=== PATIENT | female | born 2005 | race Two or more races ===

== ENCOUNTER → 2025-02-24 | Outpatient (CLI) | payer MEDICAID, SELFPAY ==
--- NOTE | 2025-02-24 13:49 | EKG_ITS ---
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
== END | disposition home or self-care (01) ==
LOC: SEKG 13:36
PROVIDERS: PCP Nurse Practitioner Family; Referring Provider Nurse Practitioner Family; Visit Provider Nurse Practitioner Family
DX: R07.89 Other chest pain (principal)
CPT/HCPCS: 93005

== ENCOUNTER 2025-02-28 21:06 | Emergency (ER) | payer MEDICAID, SELFPAY ==
[2025-02-28 21:07] VITALS: BMI 38.2
[2025-02-28 22:31] VITALS: BP 152/92; PULSE 104; RESP 18; TEMP 37.2; O2SAT 98
--- NOTE | 2025-02-28 23:15 | XR_ITS ---
Examination: Abdomen sonogram, Limited Date and time of exam: March 01, 2025, 0033 hours INDICATIONS: Right upper abdominal pain beginning 6 months ago Technique: Real-time lutz scale transabdominal sonographic images of the upper abdomen obtained. Findings: Multiple gallstones Gallbladder wall 0.2 cm Common bile duct 0.2 cm Pancreatic head 2.0 cm Liver 17.2 cm fatty infiltration Normal hepatopedal portal venous flow. Patent IVC IMPRESSION: Cholelithiasis
[2025-03-01 00:33] LABS: Collection Type, Urine Clean Catch
[2025-03-01 00:51] LABS: Bilirubin,Urine Negative (Negative); Blood,Urine Negative (Negative); Clarity,Urine Clear (Clear/Hazy); Color,Urine Lt-Yellow (Lt Yel-Yel); Culture Indicated,Urine Not Indicated; Glucose, Urine Negative (Negative); Ketones,Urine Negative (Negative); Leukocyte Esterase,Urine Negative (Negative); Nitrite,Urine Negative (Negative); Protein,Urine Negative (Neg - Trace); RBC,Urine 1 /hpf (0-3); Specific Gravity,Urine 1.012 (1.001-1.035); Squamous Epithelial Cell,Urine 2 /hpf (0-5); Urobilinogen,Urine Negative mg/dL (0.0-1.0); WBC,Urine 1 /hpf (0-5)
[2025-03-01 01:15] VITALS: BP 131/85; PULSE 98; RESP 18; TEMP 36.6; O2SAT 99
--- NOTE | 2025-03-01 01:51 | PRELIM_ITS ---
Right upper quadrant abdominal ultrasound with Doppler and wave Doppler spectral analysis. March 01, 2025 0033 hours Clinical history: Right upper quadrant pain 6 months Technique: Grayscale and color flow images of the right upper quadrant are provided. Hepatic and portal veins were also imaged with color flow images. Comparison: None available at the time of this report. Findings: The liver is enlarged and demonstrates increased echogenicity. No intrahepatic biliary ductal dilatation. Gallstones. No wall thickening or pericholecystic fluid is demonstrated. Sonographic Fontaine sign is negative as per the technologist's note. The common bile duct is normal in caliber at 1.8 mm. The pancreas is unremarkable to the extent visualized. The imaged portions of the right kidney are within normal limits. The portal vein is patent with hepatopetal flow and normal wave Doppler spectral analysis. Impression: Hepatomegaly associated with liver steatosis, suspicious for steatohepatitis. Gallstones without evidence of acute cholecystitis. Report Electronically Signed By: Stephen Muhammad 03/01/2025 1:50:33 AM [EST]
--- NOTE | 2025-03-01 04:38 | EDNOTE_ITS ---
ED Abdominal Pain RME/HPI General Chief Complaint: Abdominal Pain Stated complaint: UR Abdominal pain 8/10 x 4 days Time seen by provider: 02/28/25 23:15 Arrival date/time: 02/28/25 21:06 19F with no significant PMH presents to ED with 6 months of intermittent RUQ ab pain. Patient denies N/V and fevers/chills. Limitations: no limitations Related Data Allergies Allergy/AdvReac Type Severity Reaction Status Date / Time No Known Allergies Allergy Verified 08/27/24 21:04 Review of Systems Review of Systems Systems Reviewed: All systems reviewed, normal except as documented Constitutional Constitutional: Reports system reviewed and no additional complaints, except as documented, Denies fever(s) and Denies headache(s) ENT Ears, Nose, Mouth, and Throat: Denies disequilibrium and Denies headache(s) Cardiovascular Cardiovascular: Reports system reviewed and no additional complaints, except as documented, Denies chest pain and Denies dyspnea Respiratory Respiratory: Reports system reviewed and no additional complaints, except as documented, Denies cough and Denies dyspnea Gastrointestinal Gastrointestinal: Reports system reviewed and no additional complaints, except as documented, Reports as per HPI, Reports abdominal pain, Denies nausea and Denies vomiting Neurologic Neurologic: Reports system reviewed and no additional complaints, except as documented, Denies confusion, Denies disequilibrium and Denies headache(s) Psychiatric Psychiatric: Denies confusion Past Medical History Social History SMOKING STATUS: Never smoker ED Exam General Limitations: Present no limitations General appearance: Present alert and in no apparent distress Head Head exam: Present atraumatic Eye Eye exam: Present normal appearance, PERRL and EOMI ENT ENT exam: Present normal exam, normal oropharynx and mucous membranes moist Neck Neck exam: Present normal inspection, full ROM and trachea midline Chest Chest inspection: Present normal inspection and symmetric chest wall rise Respiratory Respiratory exam: Present normal lung sounds bilaterally Cardiovascular Cardiovascular exam: Present regular rate, normal rhythm and normal heart sounds Abdominal Exam Abdominal exam: Present soft and normal bowel sounds Extremities Exam Extremities exam: Present normal inspection and full ROM Back Exam Back exam: Present normal inspection and full ROM Neurological Exam Neurological exam: Present alert, oriented X3 and CN II-XII intact Psychiatric Psychiatric exam: Present normal affect and normal mood Skin Skin exam: Present warm, dry, intact and normal color Course Quality Measures none Orders Category Date Time Status US gall bladder Stat Exams 04/04/25 23:15 Taken UA, C/S IF [Urinalysis, C/S if Indicated] Stat Lab 03/01/25 00:02 Completed Vital Signs Vital signs: Vital Signs Temperature 98.9 F 02/28/25 22:31 Pulse Rate 104 H 02/28/25 22:31 Respiratory Rate 18 02/28/25 22:31 Blood Pressure 152/92 H 02/28/25 22:31 Pulse Oximetry (%) 98 02/28/25 22:31 O2 at 98% on RA and WNLs Abdominal Pain MDM MDM Narrative MDM Narrative:: 19F with no significant PMH presents to ED with 6 months of intermittent RUQ ab pain. Patient denies N/V and fevers/chills. Physical exam reveals no ab tenderness. No jaundice. Patient is afebrile, calm, and alert. US reveals gallstones, but no signs of inflammation. Home Lending Officer given. Patient declines pain meds. Patient data External records reviewed:: [facility] previous records Clinical information provided by:: patient Social determinants that could affect healthcare access:: none Patient has the following chronic illnesses:: none How is presenting disease/condition affected by chronic disease/condition?: no chronic disease Evaluation data The following diagnostics were reviewed and interpreted by me:: lab results and radiology exam(s) Lab and/or radiology exams considered but not ordered:: ordered Interpretation Summary: above Medications / Prescriptions Medications or Prescriptions considered but not ordered:: not ordered Medication administrations:: n/a Consultations Consultation(s) initiated? (list below): No Diagnosis Differential diagnosis abdominal pain: abdominal pain, acute appendicitis, calculus of kidney, constipation, diverticulitis, endometriosis, gastroenteritis, pancreatitis, small bowel obstruction and other (biliary disease) Most likely diagnosis given after review of the tests above:: gallstones Admission Indicated Admission indicated?: not indicated Admission Request Was there a request for admission?: No Disposition Plan Disposition Plan: Discharge Discharge Attestation Discharge Attestation: The patient and all family members were given an opportunity to ask questions and understood the discharge instructions. Discharge instructions specifically effects, indications for sooner follow up or return to the emergency department, and the expected course of current diagnosis. Patient condition: Stable Discharge Plan Plan Patient Disposition: HOME (Self Care) Disposition Comment: Stable Prescriptions/Referrals Referrals: Nighat Meneses FNP-C [Primary Care Provider] - In 1 week Problem List Clinical Impression: Gallstones Patient/Caregiver Discharge Instructions Education Materials: ED Gallstones with Biliary Colic Additional Instructions: Please follow-up with PCP within 24-48 hours and return immediately if symptoms worsen. See PCP for referral to general surgeon for elective outpatient gallbladder removal. Print Language: [place] Stand Alone Forms: Patient Portal Info Letter PA/WHITE SUGAR SUPERVISOR Supervising Physician CONSTANZA/WHITE SUGAR SUPERVISOR Supervising Physician: Dr. Valencia
== END 2025-03-01 02:22 | disposition home or self-care (01) ==
PROVIDERS: Physician Assistant; Emergency Provider Emergency Medicine; PCP Nurse Practitioner Family
DX: K80.70 Calculus of gallbladder and bile duct without cholecystitis without obstruction (principal)
CPT/HCPCS: 76705; 81001; 99284

== ENCOUNTER 2025-03-01 21:49 | Observation (INO) | payer MEDICAID, SELFPAY ==
[2025-03-01 21:49] VITALS: BMI 37.4
[2025-03-01 22:09] VITALS: BP 151/98; PULSE 105; RESP 18; TEMP 37.1; O2SAT 98
--- NOTE | 2025-03-01 22:13 | PD.EDABDPN ---
ED Abdominal Pain RME/HPI General Chief Complaint: Abdominal Pain Stated complaint: Gallstone pain Time seen by provider: 03/01/25 22:02 Arrival date/time: 03/01/25 21:49 RME / HPI RME / HPI narrative: This section includes all my notes and documentations, including HPI, PE, and ED course. William Antunez MD HPI: 19-year-old female here with over a week of severe upper abdominal pain. With nausea and vomiting. Minimal oral intake. No fever or chills. No other complaints. ROS: All negative except as documented in HPI. Physical Exam: General: Alert and oriented. In severe pain. Eyes: Conjunctivae and lids clear. ENT: No nasal congestion. Neck: Supple. Heart: RRR. Lungs: No respiratory distress. Good air movement. No rhonchi, wheezing, rales. Abdomen: Soft with epigastric and RUQ tenderness. Normal bowel sounds. No distension. No rebound or guarding. Back: No CVA tenderness. Skin: Warm and dry. Neuro: Alert and oriented X 3. I reviewed all diagnostic test results. My review of the 02/28/2025 gallbladder US report is cholecystitis. Blood tests and urine tests unremarkable. At this point, diagnoses include cholecystitis. I discussed the case with our surgeon, Dr. Macias. About the presentation and exam and diagnostics and treatments here. And need of further care in the hospital. Will accept the patient. William Antunez MD Related Data Allergies Allergy/AdvReac Type Severity Reaction Status Date / Time No Known Allergies Allergy Verified 08/27/24 21:04 Course Quality Measures none Orders Category Date Time Status Admit to Inpatient Status Routine Admission 03/02/25 00:32 Active Activity as Tolerated Routine Care 03/02/25 00:32 Ordered COVID-19 Screening Questionnaire NOW Care 03/02/25 00:23 Active Decision to Admit X1 Care 03/02/25 00:23 Completed NPO NOW Care 03/02/25 00:32 Active Saline [Insert IV] NOW Care 03/02/25 00:21 Active Consult to General Surgery Stat Cons 03/02/25 00:22 Ordered Diet NPO (NOW) Diet 03/02/25 00:32 Active Amylase Stat Lab 03/01/25 22:46 Completed Bilirubin,Direct Stat Lab 03/01/25 22:46 Completed CBC Stat Lab 03/01/25 22:46 Completed CMP [Comprehensive Metabolic Panel] Stat Lab 03/01/25 22:46 Completed HCG Qualitative,Urine Stat Lab 03/01/25 22:30 Completed Lipase Stat Lab 03/01/25 22:46 Completed Magnesium Stat Lab 03/01/25 22:46 Completed UA, C/S IF [Urinalysis, C/S if Indicated] Stat Lab 03/01/25 22:30 Completed Acetaminophen Tab [Tylenol Tab] Med 03/02/25 00:31 Active 650 mg PO Q6H PRN HYDROmorphone INJ [Dilaudid Inj] Med 03/02/25 00:21 Discontinued 1 mg IVP X1 ONE Ketorolac Inj [Toradol Inj] Med 03/02/25 00:31 Active 15 mg IVP Q6H PRN Ketorolac Inj [Toradol Inj] Med 03/02/25 00:21 Discontinued 30 mg IVP X1 ONE Morphine Inj Med 03/01/25 22:13 Discontinued 10 mg IM X1 ONE Morphine Inj Med 03/02/25 00:31 Active 4 mg IVP Q4H PRN Ondansetron Inj [Zofran Inj] Med 03/02/25 00:31 Active 4 mg IV Q8H PRN Ondansetron Inj [Zofran Inj] Med 03/02/25 00:21 Discontinued 4 mg IV X1 ONE Ondansetron Odt [Zofran Odt] Med 03/01/25 22:13 Discontinued 4 mg PO X1 ONE Piper/Tazo 3.375 gm Premix [Zosyn] Med 03/02/25 00:22 Active 3.375 gm in 50 ml IV X1 Piper/Tazo 3.375 gm Premix [Zosyn] 50 ml Med 03/02/25 08:00 Ordered IV Q8HR Sodium Chloride 0.9% 1000 ml [Ns] 1,000 ml Med 03/02/25 00:45 Active IV 125 mls/hr Sodium Chloride 0.9% 1000 ml [Ns] 1,000 ml Med 03/02/25 00:21 Active IV 999 mls/hr Code Status Routine Oth 03/02/25 00:33 Ordered Vital Signs Vital signs: Vital Signs Temperature 98.7 F 03/01/25 22:09 Pulse Rate 105 H 03/01/25 22:09 Respiratory Rate 18 03/01/25 22:09 Blood Pressure 151/98 H 03/01/25 22:09 Pulse Oximetry (%) 98 03/01/25 22:09 Abdominal Pain MDM Patient data External records reviewed:: [facility] previous records Clinical information provided by:: patient and spouse Social determinants that could affect healthcare access:: none Patient has the following chronic illnesses:: Cholelithiasis How is presenting disease/condition affected by chronic disease/condition?: exacerbated by Evaluation data The following diagnostics were reviewed and interpreted by me:: lab results and radiology exam(s) Lab and/or radiology exams considered but not ordered:: None Interpretation Summary: Cholecystitis Medications / Prescriptions Medications or Prescriptions considered but not ordered:: None Medication administrations:: Medication Administration History Acetaminophen (Acetaminophen 325 Mg Tablet) 650 mg PO Q6H PRN PRN Reason: PAIN SCALE 1-3 (mild Stop: 04/01/25 00:30 Sodium Chloride (Ns) 1,000 mls @ 999 mls/hr IV .Q1H1M ONE Stop: 03/02/25 01:21 Piperacillin/Tazobactam/Dextrose (Zosyn) 3.375 gm in 50 mls @ 100 mls/hr IV X1 ONE Stop: 03/02/25 00:51 Sodium Chloride (Ns) 1,000 mls @ 125 mls/hr IV .Q8H MORALES Stop: 04/01/25 00:44 Piperacillin/Tazobactam/Dextrose (Zosyn) 50 mls @ 100 mls/hr IV Q8HR MORALES Stop: 03/09/25 07:59 Ketorolac Tromethamine (Ketorolac Inj 30 Mg/Ml Vial) 15 mg IVP Q6H PRN PRN Reason: PAIN SCALE 4-6 (Moderate Stop: 03/07/25 00:30 Morphine Sulfate (Morphine Sulf Inj 10 Mg/Ml Vial) 4 mg IVP Q4H PRN PRN Reason: PAIN SCALE 7-10 (Severe Ondansetron HCl (Ondansetron Inj 2 Mg/Ml Inj 2 Ml) 4 mg IV Q8H PRN; Protocol PRN Reason: NAUSEA OR VOMITING Stop: 04/01/25 00:44 Discontinued Medications Hydromorphone HCl (Hydromorphone Inj 2 Mg/Ml Vial) 1 mg IVP X1 ONE Stop: 03/02/25 00:22 Ketorolac Tromethamine (Ketorolac Inj 30 Mg/Ml Vial) 30 mg IVP X1 ONE Stop: 03/02/25 00:22 Morphine Sulfate (Morphine Sulf Inj 10 Mg/Ml Vial) 10 mg IM X1 ONE Stop: 03/01/25 22:14 Last Admin: 03/01/25 23:44 Dose: 10 mg Documented By: EE Ondansetron HCl (Ondansetron Odt 4 Mg Tabrap) 4 mg PO X1 ONE; Protocol Stop: 03/01/25 22:14 Last Admin: 03/01/25 23:08 Dose: 4 mg Documented By: EE Ondansetron HCl (Ondansetron Inj 2 Mg/Ml Inj 2 Ml) 4 mg IV X1 ONE; Protocol Stop: 03/02/25 00:22 Pain management and IV fluid and ABX Consultations Consultation(s) initiated? (list below): Yes Consultation #1 (Physician, Specialty, Details): I discussed the case with our surgeon, Dr. Macias. About the presentation and exam and diagnostics and treatments here. And need of further care in the hospital. Will accept the patient. Diagnosis Differential diagnosis abdominal pain: abdominal pain, acute appendicitis, calculus of kidney, constipation, diverticulitis, endometriosis, gastroenteritis, pancreatitis, small bowel obstruction and other (Biliary colic) Most likely diagnosis given after review of the tests above:: Cholecystitis Admission Indicated Admission indicated?: indicated Explain why admission is indicated or not indicated:: Cholecystitis Admission Request Was there a request for admission?: Yes Admission Attestation Admission request attestation: Discussed case with Dr. Macias service regarding admission. Discussed patients ED course, exam findings, labs, and radiology results. Dr. Macias [agrees] to accept the patient for admission. Disposition Plan Disposition Plan: Admit Discharge Plan Plan Patient Disposition: Admit Acute Care w/in Hospital Prescriptions/Referrals Referrals: Nighat Meneses FNP-C [Primary Care Provider] - In 1 week Problem List Clinical Impression: Cholecystitis Patient/Caregiver Discharge Instructions Print Language: [place] Citizen Stand Alone Forms: Alexandra Award Info., Patient Portal Info Letter
[2025-03-01 22:48] LABS: Collection Type, Urine Clean Catch
[2025-03-01 23:01] LABS: Basophils # (Auto) 0.1 Thou/mm3 (0.0-0.2); Basophils % (Auto) 1 % (0-2.5); Eosinophils # (Auto) 0.2 Thou/mm3 (0.0-0.5); Eosinophils % (Auto) 2 % (0-10); Hematocrit 35.1 % (36.0-46.0); Hemoglobin 10.3 g/dL (12.0-16.0); Immature Granulocytes % (Auto) 0 % (0-0); Immature Granulocytes Auto 0.04 Thou/mm3 (0.00-0.00); Lymphocytes # (Auto) 3.3 Thou/mm3 (1.0-5.0); Lymphocytes % (Auto) 31 % (10-50); Mean Corpuscular HGB Conc 29.3 g/dl (31.0-37.0); Mean Corpuscular Hemoglobin 19.3 pg (25.0-35.0); Mean Corpuscular Volume 66 fL (80-100); Monocytes # (Auto) 0.7 Thou/mm3 (0.0-0.8); Monocytes % (Auto) 7 % (0-12); Neutrophils # (Auto) 6.5 Thou/mm3 (1.8-7.7); Neutrophils % (Auto) 60 % (37-80); Nucleated Red Blood Cell % 0 /100 WBC (0); Platelet Count 403 Thou/mm3 (140-440); RDW Standard Deviation 40.8 fL (36.4-46.3); Red Blood Count 5.35 Miln/mm3 (4.00-5.20); White Blood Count 10.8 Thou/mm3 (4.5-11.0)
[2025-03-01 23:04] LABS: Bilirubin,Urine Negative (Negative); Blood,Urine Negative (Negative); Clarity,Urine Clear (Clear/Hazy); Color,Urine Lt-Yellow (Lt Yel-Yel); Culture Indicated,Urine Not Indicated; Glucose, Urine Negative (Negative); Ketones,Urine Negative (Negative); Leukocyte Esterase,Urine Negative (Negative); Nitrite,Urine Negative (Negative); Protein,Urine Negative (Neg - Trace); RBC,Urine 2 /hpf (0-3); Specific Gravity,Urine 1.014 (1.001-1.035); Squamous Epithelial Cell,Urine 3 /hpf (0-5); Urobilinogen,Urine Negative mg/dL (0.0-1.0); WBC,Urine 2 /hpf (0-5)
[2025-03-01] MEDS: ONDANSETRON ODT 4 MG TABRAP PO (23:08)
[2025-03-01 23:13] LABS: HCG Qualitative,Urine Negative
[2025-03-01] MEDS: MORPHINE SULF INJ 10 MG/ML VIAL IM (23:44)
[2025-03-01 23:56] LABS: Alanine Aminotransferase 41 U/L (10-49); Albumin/Globulin Ratio 1.8 (1.2-2.2); Alkaline Phosphatase 103 U/L (46-116); Amylase 83 U/L (30-118); Anion Gap 10 (7-16); Aspartate Amino Transferase 26 U/L (0-34); BUN/Creatinine Ratio 16 Ratio (12-20); Bilirubin,Direct < 0.1 mg/dL (0.0-0.3); Bilirubin,Total 0.3 mg/dL (0.3-1.2); Blood Urea Nitrogen 11 mg/dL (9-23); Calcium 9.8 mg/dL (8.3-10.6); Calcium (Corrected) 9.8 mg/dL (8.5-10.1); Chloride 104 mMol/L (98-107); Creatinine (Component) 0.7 mg/dL (0.6-1.3); Estimated Creatinine Clearance 153.1 mL/min (>60); Globulin 2.8 gm/dL (2.3-3.5); Glucose 137 mg/dL (74-106); Lipase 38 U/L (12-53); Magnesium 1.9 mg/dL (1.6-2.6); Osmolality,Calculated 280 (275-295); Potassium 3.5 mMol/L (3.4-5.1); Sodium 140 mMol/L (136-145); Total Protein 7.8 gm/dL (5.7-8.2); eGFR > 60 See Note
[2025-03-02] VITALS (9 sets, daily range): BP systolic 120–143; BP diastolic 77–98; PULSE 83–115; RESP 14–22; TEMP 36.4–37.3; O2SAT 96–99; BMI 38.5
[2025-03-02] MEDS: KETOROLAC INJ 30 MG/ML VIAL IVP (00:59)
[2025-03-02] MEDS: PIPER/TAZO 3.375 GM PREMIX 3.375 GM/50 ML BAG IV ×3 (01:00→14:11)
[2025-03-02] MEDS: SODIUM CHLORIDE 0.9% 1000 ML 1,000 ML 999 ML IV (01:00)
[2025-03-02] MEDS: HYDROmorphone INJ 2 MG/ML VIAL 1 MG IVP (01:00)
[2025-03-02] MEDS: ONDANSETRON INJ 2 MG/ML INJ 2 ML 4 MG IV (01:01)
[2025-03-02] MEDS: SODIUM CHLORIDE 0.9% 1000 ML 1,000 ML 125 ML IV ×2 (01:54→13:19)
--- NOTE | 2025-03-02 02:14 | PC.NURSE ---
Report given to NOLVIA Munoz in [facility]
[2025-03-02 05:09] LABS: Path Review Blood Smear Sent to Pathologist
--- NOTE | 2025-03-02 09:40 | EKG_ITS ---
[facility] Test Date: 2025-03-02 Pat Name: LISA ALEXANDRE [facility] Gender[facility] Female Battery Charger: IRINA : 2005 Requested By: Laurita Andrade Order Number: [id number] Reading MD: Laurita Andrade Measurements Intervals [place] Rate: 103 P: 51 MT: 179 QRS: -2 QRSD: 103 T: 19 QT: 301 QTc: 395 Interpretive Statements SINUS TACHYCARDIA INCOMPLETE RIGHT BUNDLE BRANCH BLOCK ABNORMAL RHYTHM ECG Compared to ECG 02/24/2025 13:56:33 Sinus rhythm no longer present Myocardial infarct finding no longer present /store/S0/[id number]/ecg/[id number].pdf
--- NOTE | 2025-03-02 09:59 | PC.SS ---
Colt Allen is 19-year-old female admitted to Med-Surg for Acute Cholesystitis. SS conducted bedside contact with the patient to complete initial assessment and to discuss discharge planning.? Patient confirmed demographic information. Patient identifies her life partner Pb Puente [phone] as her surrogate decision maker. Patient resides at home with her family. Pt states she is able to complete all ADL?s independently, no DME needed. Pts PCP is Dr. Nighat Meneses [facility] (last visit about 2 weeks ago) and her pharmacy of choice is [facility] in [place]. DC options discussed and pt wishes to return home. Pts family will provide transportation upon DC. No further intervention required at this time, social and human services assistant would be available to address any further concerns. DC Plan: Home Contact: Pb COLLAZO PCP: Gideon
--- NOTE | 2025-03-02 11:10 | PC.SS ---
Rounding: Surgery held by Dr. Andrade, pending US
--- NOTE | 2025-03-02 11:16 | XR_ITS ---
Examination: Abdomen sonogram, Limited Date and time of exam: March 02, 2025, 1202 hrs. Indications: Right upper abdominal pain beginning 6 months ago, worse last 2 days Technique: Real-time lutz scale transabdominal sonographic images of the upper abdomen obtained. Findings: Multiple gallstones Normal gallbladder wall 0.2 cm Common bile duct 0.2 cm Pancreatic head 2.1 cm Hepatomegaly 17.2 cm fatty infiltration Normal hepatopedal portal venous flow Patent IVC Impression: Cholelithiasis, negative for cholecystitis Mild hepatomegaly fatty liver
[2025-03-02 11:43] LABS: Troponin I < 0.002 ng/mL (0.0-0.045)
--- NOTE | 2025-03-02 11:51 | ESHP_ITS ---
HPI Date of Admission 03/02/25 00:32 HPI 19F presenting abdominal pain. Patient reports pain is similar to what she first experienced 6 months ago, when she was diagnosed with gallstones. Pain is in the right upper quadrant and comes and goes, worse after eating, 10 out of 10 in severity. Patient also reports associated nausea and diarrhea. She states this current episode of pain began 6 days ago, she first went to the ER 2 days ago and was diagnosed with cholelithiasis and sent home, however returned because her pain returned and was persistent. Patient was admitted for signs and symptoms of acute cholecystitis, however as of this morning she noted left-sided chest pain which felt like an elephant sitting on her chest and states that she recently saw a electronic bench technician for this symptom and was advised that she had a blockage in her vein . She had been taking meloxicam for the pain but stopped a week ago. Patient believes she is planned for additional testing by her electronic bench technician but is unsure of the nature of these tests and unsure of her exact diagnosis PMH: Gallstones, unknown cardiac diagnosis for which outpatient workup was recently initiated PSH: None Meds: None currently, stopped meloxicam for chest pain a week ago Allergies: NKDA Social history: Non-smoker Review of Systems Review of Systems ROS Unobtainable: All systems reviewed & no additional complaints except as documented Meds Home Medications and Allergies Allergies Allergy/AdvReac Type Severity Reaction Status Date / Time No Known Allergies Allergy Verified 08/27/24 21:04 Exam Vital Signs Temp Pulse Resp BP Pulse Ox O2 Del Method 97.5 F 105 H 16 130/91 H 99 Room Air 03/02/25 07:37 03/02/25 07:37 03/02/25 07:37 03/02/25 07:37 03/02/25 07:37 03/02/25 07:37 Constitutional Constitutional: no acute distress Routine Respiratory Exam Respiratory: Present no resp distress Routine Abdominal Exam Abdominal: Present soft; Absent tenderness (No right upper quadrant tenderness, negative Fontaine sign) or distended Results Results: Laboratory Laboratory results: results reviewed Results: Imaging US - abdomen: report reviewed Assessment & Plan Plan 19F with known symptomatic cholelithiasis, admitted for clinical signs and symptoms of acute cholecystitis however after admission patient noted left-sided chest pain and stated that she is currently undergoing cardiac workup for this pain. On exam she has no abdominal tenderness, and has not taken any pain medication for 11 hours, so I explained that at this point it is preferable to follow-up this cardiac workup before proceeding with an elective surgery. I will repeat ultrasound to evaluate for signs of cholecystitis in which case patient may need continued admission for IV antibiotics, however if it is negative patient will be discharged for close outpatient follow-up. I did explain benefits/risks of surgery including need for conversion to open, bleeding, infection, hernia, injury to nearby structures requiring further procedures or major reconstructive surgery which would need to be done at a tertiary center, and postoperative diarrhea. Patient expressed understanding and is eager to proceed Follow-up repeat abdominal ultrasound to eval for signs of cholecystitis Repeat troponin in 2 hours Dispo pending above Quality Measures Quality Measures none
[2025-03-02] MEDS: MORPHINE SULF INJ 10 MG/ML VIAL 4 MG IVP (13:12)
--- NOTE | 2025-03-02 13:37 | EKG_ITS ---
[facility] Test Date: 2025-03-02 Pat Name: LISA ALEXANDRE [facility] Field Service Rep: IRINA : 2005 Requested By: Laurita Andrade Order Number: [id number] Reading MD: Laurita Andrade Measurements Intervals [place] Rate: 99 P: 40 CO: 176 QRS: -3 QRSD: 108 T: 23 QT: 325 QTc: 418 Interpretive Statements SINUS RHYTHM INCOMPLETE RIGHT BUNDLE BRANCH BLOCK Compared to ECG 03/02/2025 09:50:04 Sinus tachycardia no longer present /store/S0/[id number]/ecg/[id number].pdf
--- NOTE | 2025-03-02 13:39 | XR_ITS ---
Examination: AP chest single view Technique: AP portable upright chest single view Exam date and time: March 02, 2025 1353 hrs. Indications: Chest pain today Findings: Normal heart size. Lungs are clear. The osseous structures are intact Impression: No active disease
[2025-03-02 14:05] LABS: Troponin I < 0.002 ng/mL (0.0-0.045)
--- NOTE | 2025-03-02 15:50 | ESCONSULT_ITS ---
HPI Data of Consult Requesting Physician: Laurita Andrade MD Admitting Provider: Laurita Andrade MD Attending Provider: Laurita Andrade MD Primary Care Provider: Nighat Meneses, D[facility] Consult Narrative History of present illness: Colt lAlen is a 19-year-old female with a past medical history of cholelithiasis who presented to the ED on 03/02 with abdominal pain that she has been experiencing for the last 6 months. She states that she follows-up at [facility] and presumed to have an abdominal ultrasound that showed gallstones. Per chart review, abdominal ultrasound dating back to 08/2024 shows cholilithiasis. States pain is associated with eating, can get up to 10/10 in severity and has started to become more severe over time. Associated nausea, no emesis, but some loose bowel movements. She recently visited the ED for right upper quadrant pain, nausea, vomiting, and decreased PO intake but then discharged home. Patient re-presented to ED and was admitted for acute cholecystitis. After admission, patient had a rapid response for chest discomfort. Per patient and boyfriend at bedside, at 1312 patient received 4 mg IV morphine and within 10-15 minutes she began to experience discomfort in her legs and that her heart was going to stop . She also described substernal chest pressure that lasted 20-30 minutes but eventually subsided without intervention. Vitals showed BP 140/90, HR 115, and RR of 22, saturating 98% on RA. CXR was unremarkable, troponins negative. However, EKG read of incomplete right bundle branch block and cardiology was consulted. Upon further history taking, patient states that she has had episodes of chest discomfort dating back to 08/2024 that she cannot correlate to a particular pattern. She states that it has happened when she has felt anxious/emotional and other times when she is not and happens once every so often, with weeks in between. Denies any recent upper respiratory symptoms or colds, a history of heart disease that she is aware of, nor a family history of heart disease that she is aware of, and states that she has received all of her childhood vaccines. 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 According to her boyfriend, patient was on the phone with provider at [facility] over the phone and was difficult to hear what they were saying, but heard something regarding a blockage but were not sure specifically what they were referring to. Otherwise, she does not have any other complaints. She lives with her boyfriend [place] [address] from [place] and can perform all of her ADLs independently. cc:: cc: Laurita Andrade MD Review of Systems Review of Systems Systems Reviewed: All systems reviewed, normal except as documented Exam Vital Signs Temp Pulse Resp BP Pulse Ox O2 Del Method 97.5 F 102 H 16 140/93 H 99 Room Air 03/02/25 11:55 03/02/25 11:55 03/02/25 11:55 03/02/25 11:55 03/02/25 11:55 03/02/25 11:55 Narrative Exam General: AOx3, no acute distress, able to speak full sentences, breathing comfortably on room air HEENT: NC/AT, mucous membranes moist, bilateral sclera anicteric Cardiovascular: tachycardic, regular rhythm, S1/S2 present, no murmurs appreciated Pulmonary: clear to auscultation bilaterally, no rales/rhonchi/wheezes Abdominal: soft, non-tender, non-distended, no rebound/guarding, normal bowel sounds present Musculoskeletal: normal ROM, no peripheral edema Skin: warm and dry, intact, no rashes Neuro: CN II-XII intact, no focal deficits Results Labs 03/02/25 17:23 03/02/25 17:23 Labs: Short CBC 03/01/25 Range/Units 22:46 WBC 10.8 (4.5-11.0) Thou/mm3 Hgb 10.3 L (12.0-16.0) g/dL Hct 35.1 L (36.0-46.0) % Plt Count 403 (140-440) Thou/mm3 BMP 03/01/25 22:46 Sodium 140 Potassium 3.5 Chloride 104 Carbon Dioxide 26.0 BUN 11 Creatinine 0.7 Glucose 137 H Calcium 9.8 Cardiac Enzymes 03/02/25 03/02/25 Range/Units 11:09 13:35 Troponin I < 0.002 < 0.002 (0.0-0.045) ng/mL Liver Function 03/01/25 Range/Units 22:46 Total Bilirubin 0.3 (0.3-1.2) mg/dL Direct Bilirubin < 0.1 (0.0-0.3) mg/dL AST 26 (0-34) U/L ALT 41 (10-49) U/L Alkaline Phosphatase 103 (46-116) U/L Albumin 5.0 (3.5-5.0) gm/dL Urine 03/01/25 Range/Units 22:30 Urine Color Lt-Yellow (Lt Yel-Yel) Urine Clarity Clear (Clear/Hazy) Urine pH 6.0 (5.0-7.0) Ur Specific [place] 1.014 (1.001-1.035) Urine Protein Negative (Neg - Trace) Urine Glucose (UA) Negative (Negative) Quality Measures Quality Measures none Medications Home Medications and Allergies Allergies Allergy/AdvReac Type Severity Reaction Status Date / Time No Known Allergies Allergy Verified 08/27/24 21:04 Visit Medications Acetaminophen (Acetaminophen 325 Mg Tablet) 650 mg PO Q6H PRN PRN Reason: PAIN SCALE 1-3 (mild Stop: 04/01/25 00:30 Sodium Chloride (Ns) 1,000 mls @ 125 mls/hr IV .Q8H MORALES Stop: 04/01/25 00:44 Last Admin: 03/02/25 13:19 Dose: 125 mls/hr Ketorolac Tromethamine (Ketorolac Inj 30 Mg/Ml Vial) 15 mg IVP Q6H PRN PRN Reason: PAIN SCALE 4-6 (Moderate Stop: 03/07/25 00:30 Morphine Sulfate (Morphine Sulf Inj 10 Mg/Ml Vial) 4 mg IVP Q4H PRN PRN Reason: PAIN SCALE 7-10 (Severe Last Admin: 03/02/25 13:12 Dose: 4 mg Ondansetron HCl (Ondansetron Inj 2 Mg/Ml Inj 2 Ml) 4 mg IV Q8H PRN; Protocol PRN Reason: NAUSEA OR VOMITING Stop: 04/01/25 00:44 Discontinued Medications Hydromorphone HCl (Hydromorphone Inj 2 Mg/Ml Vial) 1 mg IVP X1 ONE Stop: 03/02/25 00:22 Last Admin: 03/02/25 01:00 Dose: 1 mg Sodium Chloride (Ns) 1,000 mls @ 999 mls/hr IV .Q1H1M ONE Stop: 03/02/25 01:21 Last Infusion: 03/02/25 01:54 Dose: Infused Piperacillin/Tazobactam/Dextrose (Zosyn) 3.375 gm in 50 mls @ 100 mls/hr IV X1 ONE Stop: 03/02/25 00:51 Last Infusion: 03/02/25 02:23 Dose: Infused Piperacillin/Tazobactam/Dextrose (Zosyn) 3.375 gm in 50 mls @ 12.5 mls/hr IV Q8HR MORALES; Protocol Stop: 03/09/25 07:59 Last Admin: 03/02/25 14:11 Dose: 12.5 mls/hr Ketorolac Tromethamine (Ketorolac Inj 30 Mg/Ml Vial) 30 mg IVP X1 ONE Stop: 03/02/25 00:22 Last Admin: 03/02/25 00:59 Dose: 30 mg Morphine Sulfate (Morphine Sulf Inj 10 Mg/Ml Vial) 10 mg IM X1 ONE Stop: 03/01/25 22:14 Last Admin: 03/01/25 23:44 Dose: 10 mg Ondansetron HCl (Ondansetron Odt 4 Mg Tabrap) 4 mg PO X1 ONE; Protocol Stop: 03/01/25 22:14 Last Admin: 03/01/25 23:08 Dose: 4 mg Ondansetron HCl (Ondansetron Inj 2 Mg/Ml Inj 2 Ml) 4 mg IV X1 ONE; Protocol Stop: 03/02/25 00:22 Last Admin: 03/02/25 01:01 Dose: 4 mg Assessment & Plan Plan Colt Allen is a 19-year-old female with a past medical history of cholelithiasis who presented to the ED on 03/02 with abdominal pain that she has been experiencing for the last 6 months. She states that she follows-up at [facility] and presumed to have an abdominal ultrasound that showed gallstones. Per chart review, abdominal ultrasound dating back to 08/2024 shows cholilithiasis. States pain is associated with eating, can get up to 10/10 in severity and has started to become more severe over time. Associated nausea, no emesis, but some loose bowel movements. She recently visited the ED for right upper quadrant pain, nausea, vomiting, and decreased PO intake but then discharged home. Patient re-presented to ED and was admitted for acute cholecystitis. After admission, patient had a rapid response for chest discomfort. Per patient and boyfriend at bedside, at 1312 patient received 4 mg IV morphine and within 10-15 minutes she began to experience discomfort in her legs and that her heart was going to stop . She also described substernal chest pressure that lasted 20-30 minutes but eventually subsided without intervention. Vitals showed BP 140/90, HR 115, and RR of 22, saturating 98% on RA. CXR was unremarkable, troponins negative. However, EKG read of incomplete right bundle branch block and cardiology was consulted. #Chest discomfort #? Right bundle branch block Has experienced chest discomfort since 08/2024 that are not related to any specific situations or any other associated symptoms. During hospitalization, experienced chest discomfort after receiving 4 mg IV morphine that subsided without intervention. CXR unremarkable, troponins negative, but EKG showed incomplete right bundle branch block. She denies any personal history of cardiac-related problems or a family history of cardiac problems. Also denies any recent upper respiratory symptoms or recent colds and has received all of her childhood vaccines as far as she is aware. ? If cholecystectomy indicated, cleared from cardiac perspective pending echo results ? Follow cardiac echo #Cholelithiasis #RUQ pain #Morbid obesity #Chronic microcytic anemia ? Given significant microcytosis, recommend further evaluation as seen fit per primary team and/or consultants ? Rest of conditions to continue current management per primary team ----- Plan discussed with attending physician Dr. Jeramy Lawrence MD PGY-1 Internal Medicine Attending Provider Attestation/Addendum I have personally seen and examined the patient separately on the above date of service and discussed the plan of care with the resident. I reviewed the resident Dr. Henry Lawrence consultation progress note and agree with the resident findings and plan in the note above and have also edited the documentation to reflect my findings and plan. A 19-year-old female with a past medical history of morbid obesity, history of cholelithiasis diagnosed in August 2024 presented to the emergency department for further evaluation of abdominal pain along with some nausea. After admission to the hospital patient was noted to have possible cholecystitis in the presence of cholelithiasis. Patient also was receiving some morphine injection for the pain and right after the injection patient started to feel some chest pressure and heaviness on the chest which lasted for less than 5 minutes. During my examination it was reproducible but was only mild. Cardiology was consulted for further evaluation of the chest pain or chest pressure and also for preoperative cardiac risk assessment for the patient for possible cholecystectomy. Patient states that she did on and off intermittent chest pain for the last 6 months since she was diagnosed with related to any kind of activity or positional changes note provided chest pain was noted. Denies any kind of smoking alcohol or drug abuse. Lives with her boyfriend. No kids. He states school and did not work since then. Denies any kind of family history of any heart disease and states majority of her family are healthy. No evidence of any heart disease. No previous hospitalizations since childhood or any kind of medical conditions in the had all her vaccines as a kid. Does not exercise regularly. Denied any kind of recent long distance travel. Assessment and plan: 1. Preoperative cardiac risk assessment 2. Atypical chest pain-questionable costochondritis 3. Possible cholecystitis 4. Cholelithiasis 5. Morbid obesity As noted above patient denies any kind of previous history of heart disease or any family. Denies any further chest pain or chest pressure at the present symptom and no evidence of any CAD, ACS or arrhythmias of any evidence of any heart failure. She will go for possible liver scopic cholecystectomy which would be converted to open and is mostly endometrial surgery and will need general anesthesia. RCRI score is only 0. EKG showed normal sinus rhythm with incomplete right bundle branch block without any evidence of acute ST-T changes. Echo ordered and is pending RCRI risk score right now is only 0 and patient is overall at low risk of cardiac events in. Agreed to continue with the surgery with no further cardiac workup except that the echo will be completed tomorrow morning and will follow- up with results. Regarding her chest pain that appears to be atypical and positive but improved mildly on palpation rule out costochondritis. There is no evidence of any ischemic changes noted on the EKG and showed only normal sinus rhythm. Troponins were also done 2 sets were negative. As noted previously echocardiogram was ordered and will evaluate LV function artifactual as well as diastolic patient. Patient was recommended weight loss and to avoid fatty food and exercise regularly. Management of rest of the medical conditions as per primary team and other consultants. Thank you for the consult and allowing me to participate in the care of the patient. Cardiology will continue to follow. Phillip Deshpande M.D. Interventional Cardiology
--- NOTE | 2025-03-02 16:34 | PD.RESCONSUL ---
HPI Data of Consult Requesting Physician: Laurita Andrade MD Admitting Provider: Laurita Andrade MD Attending Provider: Bryon Wesley DO Primary Care Provider: LORRI West Consult Narrative Reason for consult: Chest pain History of present illness: 19-year-old female without significant past medical history presented to the ED with abdominal pain, gallbladder ultrasound showed cholelithiasis. Patient was admitted to surgical services, however day of planned cholecystectomy patient developed severe pressure-like chest pain prompting rapid response. Hospitalist team was consulted for management of cardiac condition. Patient endorses history of blockage in her heart , was referred to community development worker but did not follow-up. Pain relieved with morphine. cc:: cc: Laurita Andrade MD Review of Systems Review of Systems Systems Reviewed: All systems reviewed, normal except as documented Past Medical History Past Medical History Comments PMH COMMENT: PMH: Gallstones, unknown cardiac diagnosis for which outpatient workup was recently initiated PSH: None Meds: None currently, stopped meloxicam for chest pain a week ago Allergies: NKDA Social history: Non-smoker Exam Vital Signs Temp Pulse Resp BP Pulse Ox O2 Del Method 97.5 F 100 16 120/77 99 Room Air 03/02/25 16:00 03/02/25 16:00 03/02/25 16:00 03/02/25 16:00 03/02/25 16:00 03/02/25 16:00 Narrative Exam PE: Gen: Well-developed and well-nourished. HEENT: NCAT, PERRLA, EOMI, MMM, anicteric conjunctivae. CVS: normal S1 and S2. RRR. No M/R/G. Resp: CTA B/L. No rhonchi, rales, crackles or wheezing. Abd: soft, non-distended. Right upper quadrant tenderness MSK: Good ROM in BUE & BLE. No edema or rash. Neuro: CN II-XII grossly intact. Strength 5/5 in BUE & BLE. Alert and oriented x3. Psych: appropriate mood and affect. Results Labs 03/01/25 22:46 03/01/25 22:46 Labs: Short CBC 03/01/25 Range/Units 22:46 WBC 10.8 (4.5-11.0) Thou/mm3 Hgb 10.3 L (12.0-16.0) g/dL Hct 35.1 L (36.0-46.0) % Plt Count 403 (140-440) Thou/mm3 BMP 03/01/25 22:46 Sodium 140 Potassium 3.5 Chloride 104 Carbon Dioxide 26.0 BUN 11 Creatinine 0.7 Glucose 137 H Calcium 9.8 Cardiac Enzymes 03/02/25 03/02/25 Range/Units 11:09 13:35 Troponin I < 0.002 < 0.002 (0.0-0.045) ng/mL Liver Function 03/01/25 Range/Units 22:46 Total Bilirubin 0.3 (0.3-1.2) mg/dL Direct Bilirubin < 0.1 (0.0-0.3) mg/dL AST 26 (0-34) U/L ALT 41 (10-49) U/L Alkaline Phosphatase 103 (46-116) U/L Albumin 5.0 (3.5-5.0) gm/dL Urine 03/01/25 Range/Units 22:30 Urine Color Lt-Yellow (Lt Yel-Yel) Urine Clarity Clear (Clear/Hazy) Urine pH 6.0 (5.0-7.0) Ur Specific [place] 1.014 (1.001-1.035) Urine Protein Negative (Neg - Trace) Urine Glucose (UA) Negative (Negative) Quality Measures Quality Measures VTE prophylaxis Medications Home Medications and Allergies Allergies Allergy/AdvReac Type Severity Reaction Status Date / Time No Known Allergies Allergy Verified 08/27/24 21:04 Visit Medications Acetaminophen (Acetaminophen 325 Mg Tablet) 650 mg PO Q6H PRN PRN Reason: PAIN SCALE 1-3 (mild Stop: 04/01/25 00:30 Ketorolac Tromethamine (Ketorolac Inj 30 Mg/Ml Vial) 15 mg IVP Q6H PRN PRN Reason: PAIN SCALE 4-6 (Moderate Stop: 03/07/25 00:30 Morphine Sulfate (Morphine Sulf Inj 10 Mg/Ml Vial) 4 mg IVP Q4H PRN PRN Reason: PAIN SCALE 7-10 (Severe Last Admin: 03/02/25 13:12 Dose: 4 mg Ondansetron HCl (Ondansetron Inj 2 Mg/Ml Inj 2 Ml) 4 mg IV Q8H PRN; Protocol PRN Reason: NAUSEA OR VOMITING Stop: 04/01/25 00:44 Discontinued Medications Hydromorphone HCl (Hydromorphone Inj 2 Mg/Ml Vial) 1 mg IVP X1 ONE Stop: 03/02/25 00:22 Last Admin: 03/02/25 01:00 Dose: 1 mg Sodium Chloride (Ns) 1,000 mls @ 999 mls/hr IV .Q1H1M ONE Stop: 03/02/25 01:21 Last Infusion: 03/02/25 01:54 Dose: Infused Piperacillin/Tazobactam/Dextrose (Zosyn) 3.375 gm in 50 mls @ 100 mls/hr IV X1 ONE Stop: 03/02/25 00:51 Last Infusion: 03/02/25 02:23 Dose: Infused Sodium Chloride (Ns) 1,000 mls @ 125 mls/hr IV .Q8H MORALES Stop: 04/01/25 00:44 Last Admin: 03/02/25 13:19 Dose: 125 mls/hr Piperacillin/Tazobactam/Dextrose (Zosyn) 3.375 gm in 50 mls @ 12.5 mls/hr IV Q8HR MORALES; Protocol Stop: 03/09/25 07:59 Last Admin: 03/02/25 14:11 Dose: 12.5 mls/hr Ketorolac Tromethamine (Ketorolac Inj 30 Mg/Ml Vial) 30 mg IVP X1 ONE Stop: 03/02/25 00:22 Last Admin: 03/02/25 00:59 Dose: 30 mg Morphine Sulfate (Morphine Sulf Inj 10 Mg/Ml Vial) 10 mg IM X1 ONE Stop: 03/01/25 22:14 Last Admin: 03/01/25 23:44 Dose: 10 mg Ondansetron HCl (Ondansetron Odt 4 Mg Tabrap) 4 mg PO X1 ONE; Protocol Stop: 03/01/25 22:14 Last Admin: 03/01/25 23:08 Dose: 4 mg Ondansetron HCl (Ondansetron Inj 2 Mg/Ml Inj 2 Ml) 4 mg IV X1 ONE; Protocol Stop: 03/02/25 00:22 Last Admin: 03/02/25 01:01 Dose: 4 mg Assessment & Plan Plan 19-year-old female without significant past medical history presented to the ED with abdominal pain, hospitalist team consulted for management of sudden pressure-like cardiac pain relieved with morphine. #Chest pain prior to surgery Patient was scheduled for cholecystectomy, prior to surgery developed crushing like chest pain relieved with morphine. EKG showed right bundle branch block. Troponins negative. -Cardiology consulted, follow-up recommendations -Cardiac monitoring DVT prophylaxis: Mobility GI prophylaxis: None Diet: Full liquid diet Lines: Peripheral IV Code status: Full code Plan of care discussed with attending Dr. Wesley. Harjinder Albarran MD PGY?1 Attending Provider Attestation/Addendum I have discussed and was present for the essential components of the history, physical examination, diagnosis, and treatment plan with the resident. I agree with the patient's care as documented by the resident and amended herein by me. Nikolas Wesley, DO. Patient seen and evaluated this afternoon. In short, 19-year-old female with a significant past medical history of gallstones and a blockage in her heart , who had a rapid response called this afternoon for chest pressure which occurred spontaneously. Patient states she has had this before in the past however not this bad. Patient was here for elective cholecystectomy considering her gallstones, she was scheduled for surgery this morning however it was canceled until further workup is done. Troponin is negative, EKG also ordered with demonstrated NSR and what appears to be a right bundle stefany block. We will consult cardiology for further review, recommendations appreciated. The patient was already feeling better by the time we got to the room, morphine was given however no nitro at the time per nursing staff. At time of rapid, patient was mildly tachycardic with a heart rate of 102, patient on room air, SpO2 at 98%, no respiratory distress noted, patient denied any chest pain and stated her chest pressure was better. Labs were done on 03/01, CBC significant for a hemoglobin of 10.3, MCV 66, glucose 137, CBC largely unremarkable, UA unremarkable. Chest x-ray performed today was clear gallbladder ultrasound also performed today demonstrated some fatty liver and cholelithiasis. Repeat labs pending Although this document has been carefully reviewed, there may still be some phonetic and other typographical errors. These errors are purely grammatical due to imperfections in the software program and should not be construed in any way to compromise the substance of the patient's medical care during this visit.
[2025-03-02 17:32] LABS: Basophils # (Auto) 0.1 Thou/mm3 (0.0-0.2); Basophils % (Auto) 0 % (0-2.5); Eosinophils # (Auto) 0.1 Thou/mm3 (0.0-0.5); Eosinophils % (Auto) 1 % (0-10); Hematocrit 31.7 % (36.0-46.0); Hemoglobin 9.5 g/dL (12.0-16.0); Immature Granulocytes % (Auto) 0 % (0-0); Immature Granulocytes Auto 0.03 Thou/mm3 (0.00-0.00); Lymphocytes % (Auto) 25 % (10-50); Mean Corpuscular Hemoglobin 19.4 pg (25.0-35.0); Mean Corpuscular Volume 65 fL (80-100); Monocytes # (Auto) 0.8 Thou/mm3 (0.0-0.8); Monocytes % (Auto) 7 % (0-12); Neutrophils # (Auto) 8.1 Thou/mm3 (1.8-7.7); Neutrophils % (Auto) 67 % (37-80); Nucleated Red Blood Cell % 0 /100 WBC (0); Platelet Count 362 Thou/mm3 (140-440); Red Blood Count 4.89 Miln/mm3 (4.00-5.20)
[2025-03-02 18:05] LABS: Alanine Aminotransferase 33 U/L (10-49); Albumin, Serum 4.3 gm/dL (3.5-5.0); Albumin/Globulin Ratio 1.5 (1.2-2.2); Alkaline Phosphatase 81 U/L (46-116); Anion Gap 8 (7-16); Aspartate Amino Transferase 22 U/L (0-34); BUN/Creatinine Ratio 12 Ratio (12-20); Bilirubin,Total 0.4 mg/dL (0.3-1.2); Blood Urea Nitrogen 7 mg/dL (9-23); Carbon Dioxide 25.6 mMol/L (20.0-31.0); Chloride 107 mMol/L (98-107); Creatinine (Component) 0.6 mg/dL (0.6-1.3); Estimated Creatinine Clearance 181.6 mL/min (>60); Globulin 2.8 gm/dL (2.3-3.5); Glucose 96 mg/dL (74-106); Osmolality,Calculated 279 (275-295); Potassium 4.1 mMol/L (3.4-5.1); Sodium 141 mMol/L (136-145); Total Protein 7.1 gm/dL (5.7-8.2); eGFR > 60 See Note
[2025-03-02] MEDS: KETOROLAC INJ 30 MG/ML VIAL 15 MG IVP (20:49)
[2025-03-03] VITALS (9 sets, daily range): BP systolic 118–126; BP diastolic 72–88; PULSE 87–99; RESP 16–20; TEMP 36.1–37.1; O2SAT 94–99
[2025-03-03 05:05] LABS: Red Blood Count 4.84 Miln/mm3 (4.00-5.20); White Blood Count 9.9 Thou/mm3 (4.5-11.0)
[2025-03-03 05:06] LABS: Basophils # (Auto) 0.1 Thou/mm3 (0.0-0.2); Basophils % (Auto) 1 % (0-2.5); Eosinophils # (Auto) 0.2 Thou/mm3 (0.0-0.5); Eosinophils % (Auto) 2 % (0-10); Hematocrit 31.6 % (36.0-46.0); Hemoglobin 9.3 g/dL (12.0-16.0); Immature Granulocytes % (Auto) 0 % (0-0); Immature Granulocytes Auto 0.02 Thou/mm3 (0.00-0.00); Lymphocytes # (Auto) 3.7 Thou/mm3 (1.0-5.0); Lymphocytes % (Auto) 37 % (10-50); Mean Corpuscular HGB Conc 29.4 g/dl (31.0-37.0); Mean Corpuscular Hemoglobin 19.2 pg (25.0-35.0); Mean Corpuscular Volume 65 fL (80-100); Monocytes # (Auto) 0.8 Thou/mm3 (0.0-0.8); Monocytes % (Auto) 8 % (0-12); Neutrophils # (Auto) 5.2 Thou/mm3 (1.8-7.7); Neutrophils % (Auto) 52 % (37-80); Nucleated Red Blood Cell % 0 /100 WBC (0); Platelet Count 354 Thou/mm3 (140-440); RDW Standard Deviation 40.6 fL (36.4-46.3)
[2025-03-03 05:39] LABS: Alanine Aminotransferase 31 U/L (10-49); Albumin/Globulin Ratio 1.5 (1.2-2.2); Alkaline Phosphatase 76 U/L (46-116); Anion Gap 9 (7-16); Aspartate Amino Transferase 20 U/L (0-34); BUN/Creatinine Ratio 10 Ratio (12-20); Bilirubin,Total 0.5 mg/dL (0.3-1.2); Blood Urea Nitrogen 6 mg/dL (9-23); Calcium 8.8 mg/dL (8.3-10.6); Calcium (Corrected) 8.8 mg/dL (8.5-10.1); Carbon Dioxide 24.8 mMol/L (20.0-31.0); Chloride 106 mMol/L (98-107); Creatinine (Component) 0.6 mg/dL (0.6-1.3); Estimated Creatinine Clearance 181.6 mL/min (>60); Globulin 2.6 gm/dL (2.3-3.5); Glucose 89 mg/dL (74-106); Magnesium 1.8 mg/dL (1.6-2.6); Osmolality,Calculated 276 (275-295); Phosphorous 3.8 mg/dL (2.4-5.1); Potassium 3.8 mMol/L (3.4-5.1); Sodium 140 mMol/L (136-145); Total Protein 6.6 gm/dL (5.7-8.2); eGFR > 60 See Note
[2025-03-03] MEDS: KETOROLAC INJ 30 MG/ML VIAL 15 MG IVP ×3 (06:01→17:58)
[2025-03-03] MEDS: Magnesium Sulfate 2 GM Ivpb 2 GM/50 ML BAG IV (08:38)
--- NOTE | 2025-03-03 09:32 | PC.SS ---
Rounding: Team only consult, pending ECHO prior to Cholecystectomy
[2025-03-03 09:40] LABS: Iron 31 mcg/dL (50-170); Percent Iron Saturation 8 % (20-55); Total Iron Binding Capacity 382 mcg/dL (250-425); Unsaturated Iron Binding 351 (225-295)
--- NOTE | 2025-03-03 10:16 | PC.NURSE ---
Patient c/o pain to IV site. RN observed, no s/s of redness, infiltration. RN flushed with 10mL NS. Patient denies any pain during flush. RN reconnected IV fluids. RN instructed on s/s of infiltration, pheblitis. Patient verbalized understanding.
--- NOTE | 2025-03-03 11:29 | PD.RESPRO ---
Documentation for date of: 03/03/25 Subjective Subjective Interval history: No acute overnight events noted. Seen and examined at bedside and currently does not have any complaints other than right upper quadrant tenderness. Has not had additional episodes of substernal chest discomfort and denies shortness of breath, or lightheadedness. Vital signs stable, labs reviewed and unremarkable other than microcytic anemia. Spoke to patient regarding importance of losing weight not just her current problems but for her long-term health as well. Echo 03/03: Normal LV size and function with and estimated EF of 60-65%. Normal RV size and function with normal RVSP. Mild TR. ? If cholecystectomy indicated, cleared from cardiac perspective Exam Vital Signs Temp Pulse Resp BP Pulse Ox O2 Del Method 98 F 87 18 118/85 H 96 Room Air 03/03/25 08:00 03/03/25 08:00 03/03/25 08:00 03/03/25 08:00 03/03/25 08:00 03/03/25 08:00 Narrative Exam General: AOx3, no acute distress, able to speak full sentences, breathing comfortably on room air HEENT: NC/AT, mucous membranes moist, bilateral sclera anicteric Cardiovascular: tachycardic, regular rhythm, S1/S2 present, no murmurs appreciated Pulmonary: clear to auscultation bilaterally, no rales/rhonchi/wheezes Abdominal: RUQ tenderness, non-distended, no rebound/guarding, normal bowel sounds present Musculoskeletal: sternum tender to palpation, normal ROM, no peripheral edema Skin: warm and dry, intact, no rashes Neuro: CN II-XII intact, no focal deficits Objective Labs 03/03/25 04:17 03/03/25 04:17 Labs: Laboratory Results - last 24 hr 03/02/25 03/02/25 03/02/25 11:09 13:35 17:23 WBC 12.0 H RBC 4.89 Hgb 9.5 L Hct 31.7 L MCV 65 L MCH 19.4 L MCHC 30.0 L RDW Std Deviation 41.0 Plt Count 362 D Neut % (Auto) 67 Lymph % (Auto) 25 Kaufman % (Auto) 7 Eos % (Auto) 1 Baso % (Auto) 0 Neut # (Auto) 8.1 H Lymph # (Auto) 3.0 Kaufman # (Auto) 0.8 Eos # (Auto) 0.1 Baso # (Auto) 0.1 Immature Gran # (Auto) 0.03 H Absolute Nucleated RBC 0.00 Immature Gran % 0 Nucleated RBC % 0 Sodium 141 Potassium 4.1 D Chloride 107 Carbon Dioxide 25.6 Anion Gap 8 BUN 7 L Creatinine 0.6 Estim Creat Clear Calc 181.6 eGFR > 60 BUN/Creatinine Ratio 12 Glucose 96 Calculated Osmolality 279 Calcium 9.0 Corrected Calcium 9.0 Phosphorus Magnesium Iron TIBC Iron Saturation Unsat Iron Binding Total Bilirubin 0.4 AST 22 ALT 33 Alkaline Phosphatase 81 D Troponin I < 0.002 < 0.002 Total Protein 7.1 Albumin 4.3 D Globulin 2.8 Albumin/Globulin Ratio 1.5 03/03/25 04:17 WBC 9.9 RBC 4.84 Hgb 9.3 L Hct 31.6 L MCV 65 L MCH 19.2 L MCHC 29.4 L RDW Std Deviation 40.6 Plt Count 354 Neut % (Auto) 52 Lymph % (Auto) 37 Kaufman % (Auto) 8 Eos % (Auto) 2 Baso % (Auto) 1 Neut # (Auto) 5.2 Lymph # (Auto) 3.7 Kaufman # (Auto) 0.8 Eos # (Auto) 0.2 Baso # (Auto) 0.1 Immature Gran # (Auto) 0.02 H Absolute Nucleated RBC 0.00 Immature Gran % 0 Nucleated RBC % 0 Sodium 140 Potassium 3.8 Chloride 106 Carbon Dioxide 24.8 Anion Gap 9 BUN 6 L Creatinine 0.6 Estim Creat Clear Calc 181.6 eGFR > 60 BUN/Creatinine Ratio 10 L Glucose 89 Calculated Osmolality 276 Calcium 8.8 Corrected Calcium 8.8 Phosphorus 3.8 Magnesium 1.8 Iron 31 L TIBC 382 Iron Saturation 8 L Unsat Iron Binding 351 H Total Bilirubin 0.5 AST 20 ALT 31 Alkaline Phosphatase 76 Troponin I Total Protein 6.6 Albumin 4.0 Globulin 2.6 Albumin/Globulin Ratio 1.5 Quality Measures Quality Measures VTE prophylaxis Assessment & Plan Assessment Current Active Medications: Generic Name Dose Route Start Last Admin Trade Name Freq PRN Reason Stop Dose Admin Acetaminophen 650 mg 03/02/25 00:31 Acetaminophen 325 Mg Tablet PO 04/01/25 00:30 Q6H PRN PAIN SCALE 1-3 (mild Ketorolac Tromethamine 15 mg 03/02/25 00:31 03/03/25 06:01 Ketorolac Inj 30 Mg/Ml Vial IVP 03/07/25 00:30 15 mg Q6H PRN Administration PAIN SCALE 4-6 (Moderate Morphine Sulfate 4 mg 03/02/25 00:31 03/02/25 13:12 Morphine Sulf Inj 10 Mg/Ml Vial IVP 4 mg Q4H PRN Administration PAIN SCALE 7-10 (Severe Ondansetron HCl 4 mg 03/02/25 00:31 Ondansetron Inj 2 Mg/Ml Inj 2 Ml IV 04/01/25 00:44 Q8H PRN NAUSEA OR VOMITING Protocol Plan Colt Allen is a 19-year-old female with a past medical history of cholelithiasis who presented to the ED on 03/02 with abdominal pain that she has been experiencing for the last 6 months. She states that she follows-up at [facility] and presumed to have an abdominal ultrasound that showed gallstones. Per chart review, abdominal ultrasound dating back to 08/2024 shows cholilithiasis. States pain is associated with eating, can get up to 10/10 in severity and has started to become more severe over time. Associated nausea, no emesis, but some loose bowel movements. She recently visited the ED for right upper quadrant pain, nausea, vomiting, and decreased PO intake but then discharged home. Patient re-presented to ED and was admitted for acute cholecystitis. After admission, patient had a rapid response for chest discomfort. Per patient and boyfriend at bedside, at 1312 patient received 4 mg IV morphine and within 10-15 minutes she began to experience discomfort in her legs and that her heart was going to stop . She also described substernal chest pressure that lasted 20-30 minutes but eventually subsided without intervention. Vitals showed BP 140/90, HR 115, and RR of 22, saturating 98% on RA. CXR was unremarkable, troponins negative. However, EKG read of incomplete right bundle branch block and cardiology was consulted. #Chest discomfort #? Right bundle branch block Has experienced chest discomfort since 08/2024 that are not related to any specific situations or any other associated symptoms. During hospitalization, experienced chest discomfort after receiving 4 mg IV morphine that subsided without intervention. CXR unremarkable, troponins negative, but EKG showed incomplete right bundle branch block. She denies any personal history of cardiac-related problems or a family history of cardiac problems. Also denies any recent upper respiratory symptoms or recent colds and has received all of her childhood vaccines as far as she is aware. Echo 03/03: Normal LV size and function with and estimated EF of 60-65%. Normal RV size and function with normal RVSP. Mild TR. ? If cholecystectomy indicated, cleared from cardiac perspective #Cholelithiasis #RUQ pain #Morbid obesity #Chronic microcytic anemia ? Given significant microcytosis, recommend further evaluation as seen fit per primary team and/or consultants ? Rest of conditions to continue current management per primary team ----- Plan discussed with attending physician Dr. Jeramy Lawrence MD PGY-1 Internal Medicine Attending Provider Attestation/Addendum I have personally seen and examined the patient separately on the above date of service and discussed the plan of care with the resident. I reviewed the resident Dr. Henry Lawrence consultation progress note and agree with the resident findings and plan in the note above and have also edited the documentation to reflect my findings and plan. Phillip Deshpande M.D. Interventional Cardiology
--- NOTE | 2025-03-03 12:31 | PC.SS ---
SS received a call from [employer] from [facility] to submit clinical information to [phone]
--- NOTE | 2025-03-03 14:14 | ESPR_ITS ---
Documentation for date of: 03/03/25 Subjective Subjective Interval history: No overnight events. Patient seen examined at bedside, resting comfortably. Patient denies chest pain, shortness of breath, palpitations. Pending echo. Patient been cleared by cardiology for cholecystectomy pending echo. Exam Vital Signs Temp Pulse Resp BP Pulse Ox O2 Del Method 98.8 F 92 16 123/79 98 Room Air 03/03/25 12:00 03/03/25 12:00 03/03/25 12:00 03/03/25 12:00 03/03/25 12:00 03/03/25 12:00 Narrative Exam PE: Gen: Well-developed and well-nourished. HEENT: NCAT, PERRLA, EOMI, MMM, anicteric conjunctivae. CVS: normal S1 and S2. RRR. No M/R/G. Resp: CTA B/L. No rhonchi, rales, crackles or wheezing. Abd: soft, non-distended. Right upper quadrant tenderness MSK: Good ROM in BUE & BLE. No edema or rash. Neuro: CN II-XII grossly intact. Strength 5/5 in BUE & BLE. Alert and oriented x3. Psych: appropriate mood and affect. Objective Labs 03/03/25 04:17 03/03/25 04:17 Labs: Laboratory Results - last 24 hr 03/02/25 03/03/25 17:23 04:17 WBC 12.0 H 9.9 RBC 4.89 4.84 Hgb 9.5 L 9.3 L Hct 31.7 L 31.6 L MCV 65 L 65 L MCH 19.4 L 19.2 L MCHC 30.0 L 29.4 L RDW Std Deviation 41.0 40.6 Plt Count 362 D 354 Neut % (Auto) 67 52 Lymph % (Auto) 25 37 Amador % (Auto) 7 8 Eos % (Auto) 1 2 Baso % (Auto) 0 1 Neut # (Auto) 8.1 H 5.2 Lymph # (Auto) 3.0 3.7 Amador # (Auto) 0.8 0.8 Eos # (Auto) 0.1 0.2 Baso # (Auto) 0.1 0.1 Immature Gran # (Auto) 0.03 H 0.02 H Absolute Nucleated RBC 0.00 0.00 Immature Gran % 0 0 Nucleated RBC % 0 0 Sodium 141 140 Potassium 4.1 D 3.8 Chloride 107 106 Carbon Dioxide 25.6 24.8 Anion Gap 8 9 BUN 7 L 6 L Creatinine 0.6 0.6 Estim Creat Clear Calc 181.6 181.6 eGFR > 60 > 60 BUN/Creatinine Ratio 12 10 L Glucose 96 89 Calculated Osmolality 279 276 Calcium 9.0 8.8 Corrected Calcium 9.0 8.8 Phosphorus 3.8 Magnesium 1.8 Iron 31 L TIBC 382 Iron Saturation 8 L Unsat Iron Binding 351 H Total Bilirubin 0.4 0.5 AST 22 20 ALT 33 31 Alkaline Phosphatase 81 D 76 Total Protein 7.1 6.6 Albumin 4.3 D 4.0 Globulin 2.8 2.6 Albumin/Globulin Ratio 1.5 1.5 Quality Measures Quality Measures VTE prophylaxis Assessment & Plan Assessment Current Active Medications: Generic Name Dose Route Start Last Admin Trade Name Freq PRN Reason Stop Dose Admin Acetaminophen 650 mg 03/02/25 00:31 Acetaminophen 325 Mg Tablet PO 04/01/25 00:30 Q6H PRN PAIN SCALE 1-3 (mild Ketorolac Tromethamine 15 mg 03/02/25 00:31 03/03/25 12:08 Ketorolac Inj 30 Mg/Ml Vial IVP 03/07/25 00:30 15 mg Q6H PRN Administration PAIN SCALE 4-6 (Moderate Morphine Sulfate 4 mg 03/02/25 00:31 03/02/25 13:12 Morphine Sulf Inj 10 Mg/Ml Vial IVP 4 mg Q4H PRN Administration PAIN SCALE 7-10 (Severe Ondansetron HCl 4 mg 03/02/25 00:31 Ondansetron Inj 2 Mg/Ml Inj 2 Ml IV 04/01/25 00:44 Q8H PRN NAUSEA OR VOMITING Protocol Plan 19-year-old female without significant past medical history presented to the ED with abdominal pain, hospitalist team consulted for management of sudden pressure-like cardiac pain relieved with morphine. #Chest pain prior to surgery Patient was scheduled for cholecystectomy, prior to surgery developed crushing like chest pain relieved with morphine. EKG showed right bundle branch block. Troponins negative. -Cardiology consulted, follow-up recommendations -Cardiac monitoring #Cholelithiasis Present with right upper quadrant abdominal pain. Cholelithiasis determined by imaging. Patient pending cholecystectomy once cleared by cardiology. -Management as per general surgery team DVT prophylaxis: Mobility GI prophylaxis: None Diet: Full liquid diet Lines: Peripheral IV Code status: Full code Plan of care discussed with senior resident Dr. Damon PGY?[address] Wesley[address] Harjinder Albarran MD PGY?1 Senior resident attestation: The patient is a 19-year-old female, no particular past medical history, no significant family history of cardiac disorders, hospitalist team was consulted by general surgeon Dr. Macias, patient was pending surgery the day of rapid response, rapid response was called due to chest pain and pressure-like symptoms, there was some concern about a heart block by patient, EKG showed right bundle branch block, per patient she had been referred to see a senior sql server developer, but is pending an appointment. We consulted cardiology ordered troponin, repeat labs, less likely cardiac etiology of chest pain, quite possibly stress-induced chest discomfort in anticipation of surgery. Will defer cardiac clearance to cardiology. Patient evaluated and examined at the bedside, plan of care discussed with rest of the team including my attending physician, except as noted. Nelson PGY2 Attending Provider Attestation/Addendum I have discussed and was present for the essential components of the history, physical examination, diagnosis, and treatment plan with the resident. I agree with the patient's care as documented by the resident and amended herein by me. Nikolas Wesley, DO. Patient seen and evaluated this AM. No acute events overnight, patient originally admitted by general surgery for elective cholecystectomy however yesterday rapid response was called for chest pressure which lasted approximately 30 minutes and resolved on its own. Cardiology was consulted, patient deemed low risk, echo is pending. Patient had no subjective complaints, no repeat episodes overnight or this morning. EKG demonstrated a right bundle stefany block however troponins were negative. Will continue to follow patient with you likely today, will follow with echo results likely sign off tomorrow/8. Although this document has been carefully reviewed, there may still be some phonetic and other typographical errors. These errors are purely grammatical due to imperfections in the software program and should not be construed in any way to compromise the substance of the patient's medical care during this visit.
--- NOTE | 2025-03-03 14:41 | ECHO_ITS ---
Transthoracic Echo Report Ht (in): 65 Wt (lb): 231 Exam Location: Echo Lab Status: Inpatient Nuclear Waste Process Operator: MANGO Prather^^^^ Indications: Procedure Performed: BP: 117 / 74 HR: 93 Rhythm: Sinus Technical Quality: Fair MEASUREMENT (Male / Female) Normal Values S 2D ECHO LV Diastolic Diameter PLAX 5.2 cm 4.2 - 5.9 / 3.9 - 5.3 cm LV Systolic Diameter PLAX 3.1 cm IVS Diastolic Thickness 0.6 cm 0.6 - 1.0 / 0.6 - 0.9 cm LVPW Diastolic Thickness 0.7 cm 0.6 - 1.0 / 0.6 - 0.9 cm LV Relative Wall Thickness 0.2 LVOT Diameter 1.9 cm Aortic Root Diameter 3.1 cm LA Systolic Diameter LX 3.2 cm 3.0 - 4.0 / 2.7 - 3.8 cm LA Volume Index 15.2 cm?/m? 16 - 28 cm?/m? Ascending Aorta Diameter 2.6 cm DOPPLER AV Peak Velocity 115.0 cm/s AV Peak Gradient 5.3 mmHg AV Mean Gradient 3.5 mmHg AV Velocity Time Integral 21.4 cm LVOT Peak Velocity 87.9 cm/s LVOT Peak Gradient 3.1 mmHg LVOT Velocity Time Integral 23.4 cm LVOT Cardiac Index 2752.3 cm?/min?m? AV Area Cont Eq vti 3.1 cm? AV Area Cont Eq pk 2.2 cm? MV Area PHT 6.1 cm? Mitral E Point Velocity 73.9 cm/s Mitral A Point Velocity 67.7 cm/s Mitral E to A Ratio 1.1 LV E' Lateral Velocity 9.4 cm/s Mitral E to LV E' Lateral Ratio 7.9 LV E' Septal Velocity 14.3 cm/s Mitral E to LV E' Septal Ratio 5.2 TR Peak Velocity 213.0 cm/s TR Peak Gradient 18.1 mmHg PV Peak Velocity 119.0 cm/s PV Peak Gradient 5.7 mmHg RVOT Peak Velocity 58.4 cm/s FINDING S Left Ventricle Normal left ventricular size, wall thickness, systolic function with no obvious regional wall motion abnormalities. Normal left ventricular diastolic filling pattern for age. The left ventricular ejection fraction is normal, estimated at 60-65%. Right Ventricle The right ventricle is normal in size and systolic function. The estimated right ventricular systolic pressure, 23 mmHg. Left Atrium The left atrium is normal by two-dimensional, color flow and Doppler imaging with no structural abnormalities, no thrombus formation present. Right Atrium The right atrium is normal by two-dimensional imaging, color flow and Doppler imaging with no structural abnormalities, no thrombus formation present. Atrial Septum The interatrial septum appears normal with no evidence of a shunt. Aorta The aorta is normal by two-dimensional, color flow and Doppler interrogation. Mitral Valve The mitral valve is normal by two-dimensional, color flow and Doppler interrogation. There is no significant mitral valve regurgitation, stenosis or prolapse. Aortic Valve The aortic valve is trileaflet and normal by two-dimensional, color flow and Doppler interrogation. There is no significant aortic valve regurgitation. Tricuspid Valve There is mild tricuspid valve regurgitation. Pulmonic Valve Trivial pulmonic valve regurgitation. Vessels The pulmonary artery appears normal. The inferior vena cava pulmonary and hepatic veins appear normal. Pericardium The pericardium is normal by two-dimensional imaging. There is no significant pericardial effusion. CONCLUSION S Indication: Chest pain Normal LV size and function with and estimated Ef of 60-65% Normal Rv size and function with normal RVSP. Mild TR. Phillip Dehspande (Electronically Signed) Final Date: 03 March 2025 18:39
--- NOTE | 2025-03-03 16:02 | PD.SURPROG ---
Documentation for date of: 03/03/25 Subjective Subjective Brief History: 19F presenting abdominal pain. Patient reports pain is similar to what she first experienced 6 months ago, when she was diagnosed with gallstones. Pain is in the right upper quadrant and comes and goes, worse after eating, 10 out of 10 in severity. Patient also reports associated nausea and diarrhea. She states this current episode of pain began 6 days ago, she first went to the ER 2 days ago and was diagnosed with cholelithiasis and sent home, however returned because her pain returned and was persistent. Patient was admitted for signs and symptoms of acute cholecystitis, however as of this morning she noted left-sided chest pain which felt like an elephant sitting on her chest and states that she recently saw a substance addiction coordinator for this symptom and was advised that she had a blockage in her vein . She had been taking meloxicam for the pain but stopped a week ago. Patient believes she is planned for additional testing by her substance addiction coordinator but is unsure of the nature of these tests and unsure of her exact diagnosis PMH: Gallstones, unknown cardiac diagnosis for which outpatient workup was recently initiated PSH: None Meds: None currently, stopped meloxicam for chest pain a week ago Allergies: NKDA Social history: Non-smoker Narrative: Pt reports intermittent abdominal pain but no chest pain today, no nausea, echo was done awaiting result Exam Vital Signs Temp Pulse Resp BP Pulse Ox O2 Del Method 98.8 F 92 16 123/79 98 Room Air 03/03/25 12:00 03/03/25 12:00 03/03/25 12:00 03/03/25 12:00 03/03/25 12:00 03/03/25 12:00 Constitutional Constitutional: no acute distress Routine Respiratory Exam Respiratory: Present no resp distress Results Results: Laboratory Laboratory results: results reviewed Assessment & Plan Plan 19F with known symptomatic cholelithiasis, admitted for clinical signs and symptoms of acute cholecystitis however after admission patient noted left-sided chest pain and stated that she is currently undergoing cardiac workup for this pain. She has remained clinically well, was deemed acceptable risk for surgery by cardiology pending echo result F/u echo, cardiology recs NPO after MN for laparoscopic cholecystectomy tomorrow
[2025-03-03] MEDS: ACETAMINOPHEN SOL 325 MG/10 ML UDC 650 MG PO (23:00)
[2025-03-04] VITALS (15 sets, daily range): BP systolic 95–146; BP diastolic 70–98; PULSE 81–113; RESP 12–20; TEMP 36.2–36.9; O2SAT 93–99
[2025-03-04] MEDS: KETOROLAC INJ 30 MG/ML VIAL 15 MG IVP ×2 (00:09→19:52)
[2025-03-04 05:23] LABS: Basophils # (Auto) 0.1 Thou/mm3 (0.0-0.2); Basophils % (Auto) 0 % (0-2.5); Eosinophils # (Auto) 0.2 Thou/mm3 (0.0-0.5); Eosinophils % (Auto) 2 % (0-10); Hemoglobin 9.4 g/dL (12.0-16.0); Immature Granulocytes % (Auto) 0 % (0-0); Immature Granulocytes Auto 0.04 Thou/mm3 (0.00-0.00); Lymphocytes # (Auto) 3.2 Thou/mm3 (1.0-5.0); Lymphocytes % (Auto) 27 % (10-50); Mean Corpuscular HGB Conc 29.4 g/dl (31.0-37.0); Mean Corpuscular Hemoglobin 19.1 pg (25.0-35.0); Mean Corpuscular Volume 65 fL (80-100); Monocytes # (Auto) 1.1 Thou/mm3 (0.0-0.8); Monocytes % (Auto) 9 % (0-12); Neutrophils # (Auto) 7.5 Thou/mm3 (1.8-7.7); Neutrophils % (Auto) 62 % (37-80); Nucleated Red Blood Cell % 0 /100 WBC (0); Platelet Count 391 Thou/mm3 (140-440); RDW Standard Deviation 40.8 fL (36.4-46.3); Red Blood Count 4.92 Miln/mm3 (4.00-5.20); White Blood Count 12.1 Thou/mm3 (4.5-11.0)
[2025-03-04 05:52] LABS: Alanine Aminotransferase 37 U/L (10-49); Albumin, Serum 4.4 gm/dL (3.5-5.0); Albumin/Globulin Ratio 1.7 (1.2-2.2); Alkaline Phosphatase 82 U/L (46-116); Anion Gap 10 (7-16); Aspartate Amino Transferase 24 U/L (0-34); BUN/Creatinine Ratio 16 Ratio (12-20); Bilirubin,Total 0.4 mg/dL (0.3-1.2); Blood Urea Nitrogen 11 mg/dL (9-23); Calcium 9.2 mg/dL (8.3-10.6); Calcium (Corrected) 9.2 mg/dL (8.5-10.1); Carbon Dioxide 26.5 mMol/L (20.0-31.0); Chloride 107 mMol/L (98-107); Creatinine (Component) 0.7 mg/dL (0.6-1.3); Estimated Creatinine Clearance 155.6 mL/min (>60); Globulin 2.6 gm/dL (2.3-3.5); Glucose 88 mg/dL (74-106); Magnesium 2.1 mg/dL (1.6-2.6); Osmolality,Calculated 283 (275-295); Phosphorous 4.8 mg/dL (2.4-5.1); Sodium 143 mMol/L (136-145); eGFR > 60 See Note
--- NOTE | 2025-03-04 11:02 | PD.RESPRO ---
Documentation for date of: 03/04/25 Subjective Subjective Interval history: No acute overnight events noted. Seen and examined at bedside and currently does not have any complaints other than right upper quadrant tenderness. Has not had additional episodes of substernal chest discomfort and denies shortness of breath, or lightheadedness. Vital signs stable, labs reviewed and unremarkable other than microcytic anemia. Spoke to patient regarding importance of losing weight not just her current problems but for her long-term health as well. Echo on 03/03 unremarkable and has been cleared for cholecystectomy. Exam Vital Signs Temp Pulse Resp BP Pulse Ox O2 Del Method 97.9 F 86 18 123/84 99 Room Air 03/04/25 08:00 03/04/25 08:00 03/04/25 08:00 03/04/25 08:00 03/04/25 08:00 03/04/25 08:00 Narrative Exam General: AOx3, no acute distress, able to speak full sentences, breathing comfortably on room air HEENT: NC/AT, mucous membranes moist, bilateral sclera anicteric Cardiovascular: tachycardic, regular rhythm, S1/S2 present, no murmurs appreciated Pulmonary: clear to auscultation bilaterally, no rales/rhonchi/wheezes Abdominal: RUQ tenderness, non-distended, no rebound/guarding, normal bowel sounds present Musculoskeletal: sternum tender to palpation, normal ROM, no peripheral edema Skin: warm and dry, intact, no rashes Neuro: CN II-XII intact, no focal deficits Objective Labs 03/04/25 04:44 03/04/25 04:44 Labs: Laboratory Results - last 24 hr 03/04/25 04:44 WBC 12.1 H RBC 4.92 Hgb 9.4 L Hct 32.0 L MCV 65 L MCH 19.1 L MCHC 29.4 L RDW Std Deviation 40.8 Plt Count 391 D Neut % (Auto) 62 Lymph % (Auto) 27 [place] % (Auto) 9 Eos % (Auto) 2 Baso % (Auto) 0 Neut # (Auto) 7.5 Lymph # (Auto) 3.2 [place] # (Auto) 1.1 H Eos # (Auto) 0.2 Baso # (Auto) 0.1 Immature Gran # (Auto) 0.04 H Absolute Nucleated RBC 0.00 Immature Gran % 0 Nucleated RBC % 0 Sodium 143 Potassium 4.0 Chloride 107 Carbon Dioxide 26.5 Anion Gap 10 BUN 11 Creatinine 0.7 Estim Creat Clear Calc 155.6 eGFR > 60 BUN/Creatinine Ratio 16 Glucose 88 Calculated Osmolality 283 Calcium 9.2 Corrected Calcium 9.2 Phosphorus 4.8 Magnesium 2.1 Total Bilirubin 0.4 AST 24 ALT 37 Alkaline Phosphatase 82 Total Protein 7.0 Albumin 4.4 Globulin 2.6 Albumin/Globulin Ratio 1.7 Quality Measures Quality Measures VTE prophylaxis Assessment & Plan Assessment Current Active Medications: Generic Name Dose Route Start Last Admin Trade Name Freq PRN Reason Stop Dose Admin Acetaminophen 650 mg 03/03/25 22:32 03/03/25 23:00 Acetaminophen Flores 325 Mg/10 Ml Udc PO 04/02/25 22:31 650 mg Q6HR PRN Administration Pain 1-3 Or Fever > 100.3 Ketorolac Tromethamine 15 mg 03/02/25 00:31 03/04/25 00:09 Ketorolac Inj 30 Mg/Ml Vial IVP 03/07/25 00:30 15 mg Q6H PRN Administration PAIN SCALE 4-6 (Moderate Ondansetron HCl 4 mg 03/02/25 00:31 Ondansetron Inj 2 Mg/Ml Inj 2 Ml IV 04/01/25 00:44 Q8H PRN NAUSEA OR VOMITING Protocol Oxycodone/Acetaminophen 1 tab 03/04/25 08:36 Oxycodone/Apap 5/325 Tablet PO 03/09/25 08:35 Q6HR PRN PAIN SCALE 7-10 (Severe Plan Colt Allen is a 19-year-old female with a past medical history of cholelithiasis who presented to the ED on 03/02 with abdominal pain that she has been experiencing for the last 6 months. She states that she follows-up at [facility] and presumed to have an abdominal ultrasound that showed gallstones. Per chart review, abdominal ultrasound dating back to 08/2024 shows cholilithiasis. States pain is associated with eating, can get up to 10/10 in severity and has started to become more severe over time. Associated nausea, no emesis, but some loose bowel movements. She recently visited the ED for right upper quadrant pain, nausea, vomiting, and decreased PO intake but then discharged home. Patient re-presented to ED and was admitted for acute cholecystitis. After admission, patient had a rapid response for chest discomfort. Per patient and boyfriend at bedside, at 1312 patient received 4 mg IV morphine and within 10-15 minutes she began to experience discomfort in her legs and that her heart was going to stop . She also described substernal chest pressure that lasted 20-30 minutes but eventually subsided without intervention. Vitals showed BP 140/90, HR 115, and RR of 22, saturating 98% on RA. CXR was unremarkable, troponins negative. However, EKG read of incomplete right bundle branch block and cardiology was consulted. #Chest discomfort #Incomplete right bundle branch block Has experienced chest discomfort since 08/2024 that are not related to any specific situations or any other associated symptoms. During hospitalization, experienced chest discomfort after receiving 4 mg IV morphine that subsided without intervention. CXR unremarkable, troponins negative, but EKG showed incomplete right bundle branch block. She denies any personal history of cardiac-related problems or a family history of cardiac problems. Also denies any recent upper respiratory symptoms or recent colds and has received all of her childhood vaccines as far as she is aware. Echo 03/03: Normal LV size and function with and estimated EF of 60-65%. Normal RV size and function with normal RVSP. Mild TR. ? If cholecystectomy indicated, cleared from cardiac perspective #Cholelithiasis #RUQ pain #Morbid obesity #Chronic microcytic anemia ? Given significant microcytosis, recommend further evaluation as seen fit per primary team and/or consultants ? Rest of conditions to continue current management per primary team ----- Plan discussed with attending physician Dr. Jeramy Lawrence MD PGY-1 Internal Medicine Attending Provider Attestation/Addendum I have personally seen and examined the patient separately on the above date of service and discussed the plan of care with the resident. I reviewed the resident Dr. Henry Lawrence consultation progress note and agree with the resident findings and plan in the note above and have also edited the documentation to reflect my findings and plan. Phillip Deshpande M.D. Interventional Cardiology
--- NOTE | 2025-03-04 14:03 | ESOP_ITS ---
Date of Procedure 03/04/25 Pre Op Diagnosis Symptomatic cholelithiasis Post Op Diagnosis Same Procedure Laparoscopic cholecystectomy Findings Gallbladder with stones Procedure Description After discussion of risks and benefits, patient was brought to the operating room, SCDs were placed and general anesthesia was induced. She received preo perative antibiotics and was prepped and draped in usual sterile fashion. After timeout a supra umbilical incision was made with #15 blade and the skin was elevated with towel clamps a Veress needle was placed through the incision and proper positioning was confirmed by the drop test. At that point the abdomen was insufflated to 15 mmHg and the Veress needle was then exchanged for a 5 mm camera using a Visiport technique. There were no signs of injury from the point of entry. 3 additional ports were placed under direct vision, one 12 mm at the epigastrium, one 5 mm right subcostal one 5 mm right anterior axillary line. Patient was placed in reverse Trendelenburg with left side down. The fundus of the gallbladder was grasped and retracted cephalad and the infundibulum was grasped and retracted laterally. Using blunt dissection, the critical view of safety was achieved and the cystic duct and cystic artery were clipped and transected in the usual fashion. The gallbladder was removed from the gallbladder bed using electrocautery. The gallbladder bed was irrigated and hemostasis was achieved with electrocautery. The specimen was removed in an Endo Catch bag via the epigastric port and the epigastric fascia was closed with a 0 Vicryl suture using a Jaime-Jeffry. Pneumoperitoneum was released and ports were removed under direct vision. Incisions were irrigated and infi ltrated with half percent Marcaine for a total of 30 cc. Incisions were closed with 4-0 Monocryl and reinforced with Dermabond. Patient was extubated and brought to PACU in stable condition Pathology / specimen Other (Gallbladder) Estimated Blood Loss 20 Surgeon Laurita Andrade MD Surgical Staff Operation Date: 03/04/25 15:15 <No data on this case meets the specified criteria>
--- NOTE | 2025-03-04 14:07 | PD.SURDS ---
Planned Discharge Date 03/04/25 DS: Providers Provider Date of admission: 03/02/25 00:32 Primary care physician: LORRI West Admitting Provider: Laurita Andrade MD Attending Provider on Admission: Bryon Wesley DO Consults: 03/02/25 00:22 Consult to General Surgery Stat Comment: Cholecystitis Consulting Provider: Laurita Adnrade 03/02/25 13:37 Consult to Internal Medicine Stat Comment: RAPID RESPONSE Consulting Provider: Amish Damon 03/02/25 13:44 Consult to Adult Hospitalist Stat Comment: Consulting Provider: Bryon Wesley 03/02/25 13:45 Consult to Cardiology Urgent Comment: Consulting Provider: Phillip Deshpande Instructions: Chest pain, RBBB, pre-op patient. Attending Provider on DC: Laurita Andrade MD Discharging Provider: Laurita Andrade MD Diagnosis Discharge Diagnosis (1) Symptomatic cholelithiasis: Status: Acute (2) Chest pain: Status: Acute Problem List Completed Was Problem List Reviewed/Reconciled?: Yes Hospital Course Patient presented 03/01 with signs and symptoms initially concerning for acute cholecystitis. She was admitted for planned cholecystectomy however developed chest pain for which internal medicine and cardiology were consulted. Patient underwent EKG, echocardiogram was normal findings and was determined to have acceptable risk for surgery. She underwent laparoscopic cholecystectomy 03/04 which proceeded without complication Exam Vital Signs Temp Pulse Resp BP Pulse Ox O2 Del Method 98.5 F 87 18 123/84 99 Room Air 03/04/25 12:00 03/04/25 12:00 03/04/25 12:00 03/04/25 12:00 03/04/25 12:00 03/04/25 12:00 Discharge Plan Plan Patient Disposition: HOME (Self Care) Prescriptions/Referrals Prescriptions/Med Rec: New oxycodone-acetaminophen [Percocet] 5-325 mg tablet 1 tab PO Q6H MDD 6 tabs PRN (Reason: pain) Qty: 10 0RF Rx Instructions: Take 1 tab every 4-6 hours as needed for severe pain Referrals: Nighat Meneses FNP-C [Primary Care Provider] - Laurita Andrade MD [Physician] - (You will receive a phone call to confirm a follow-up appointment with me in 2 weeks) Patient/Caregiver Discharge Instructions Other Discharge Activity Instructions:: Avoid lifting objects greater than 10 pounds for 6 weeks You may resume showering in 2 days, on 03/06 Avoid bathing or swimming for 2 weeks Your incisions have skin glue on them which will fall off on its own and does not need to be replaced Your stitches will not need to be removed If you develop worsening pain, nausea/vomiting, fever or signs of jaundice please seek care in ER You may take ibuprofen as needed in between doses of Percocet for pain During the surgery we fill your abdomen with air in order to see the structures. Some of this air may linger and cause pain that is referred to the shoulder and/or pain with deep breaths. This will improve over the next days to weeks. Being out of bed and walking can help the air to absorb faster Education Materials: Cholecystectomy Laparoscopic Dc, Preventing Surgical Site Infections Print Language: Faroese Stand Alone Forms: Alexandra Award Info., Patient Portal Info Letter, Work/Release Restrictions Discharge Order Discharge Orders: Discharge (Routine); Ordered 03/04/25 Ordered By: Laurita Andrade Results Results: Laboratory Laboratory results: results reviewed Results: Imaging US - abdomen: report reviewed EKG: report reviewed and image reviewed Procedures Procedure Date 03/04/25 Procedures Laparoscopic cholecystectomy
--- NOTE | 2025-03-04 14:25 | SUR.PHASEI ---
1425: Pt. AAOx4,, vitals stable, breathing unlabored, no complaint of pain or nausea, x4 dermabond sites to ABD CDI, no active bleed noted, report received from MD Martin and Carlton DE SOUZA.
[2025-03-04] MEDS: fentaNYL CIT INJ 50 mCg/ML AMP 2ML 25 MCG IV ×3 (14:35→15:17)
[2025-03-04] MEDS: HYDROmorphone INJ 2 MG/ML VIAL 0.4 MG IV (14:41)
[2025-03-04] MEDS: ACETAMINOPHEN IVPB 1,000 MG/100 ML VIAL 250 MG IV (14:44)
--- NOTE | 2025-03-04 14:52 | ESPR_ITS ---
<Statement entered by Fiona Hodges MD - 03/09/25 15:12> I reviewed above note and agree with findings and plans. I have also personally examined the patient with medicine team and went over assessment and plan with medical team including grad intern and resident physician. Documentation for date of: 03/04/25 Subjective Subjective Interval history: No overnight events. Patient seen and examined at bedside in PACU s/p cholecystectomy. Patient complains of abdominal pain, fatigue following anesthesia. Patient otherwise feels well. Continue to monitor for surgical complications. Exam Vital Signs Temp Pulse Resp BP Pulse Ox O2 Del Method 98.5 F 87 18 123/84 99 Room Air 03/04/25 12:00 03/04/25 12:00 03/04/25 12:00 03/04/25 12:00 03/04/25 12:03/04/25 12:00 Narrative Exam PE: Gen: Well-developed and well-nourished. HEENT: NCAT, PERRLA, EOMI, MMM, anicteric conjunctivae. CVS: normal S1 and S2. RRR. No M/R/G. Resp: CTA B/L. No rhonchi, rales, crackles or wheezing. Abd: soft, non-distended. Right upper quadrant tenderness MSK: Good ROM in BUE & BLE. No edema or rash. Neuro: CN II-XII grossly intact. Strength 5/5 in BUE & BLE. Alert and oriented x3. Lethargy. Psych: appropriate mood and affect. Objective Labs 03/04/25 04:44 03/04/25 04:44 Labs: Laboratory Results - last 24 hr 03/04/25 04:44 WBC 12.1 H RBC 4.92 Hgb 9.4 L Hct 32.0 L MCV 65 L MCH 19.1 L MCHC 29.4 L RDW Std Deviation 40.8 Plt Count 391 D Neut % (Auto) 62 Lymph % (Auto) 27 [place] % (Auto) 9 Eos % (Auto) 2 Baso % (Auto) 0 Neut # (Auto) 7.5 Lymph # (Auto) 3.2 [place] # (Auto) 1.1 H Eos # (Auto) 0.2 Baso # (Auto) 0.1 Immature Gran # (Auto) 0.04 H Absolute Nucleated RBC 0.00 Immature Gran % 0 Nucleated RBC % 0 Sodium 143 Potassium 4.0 Chloride 107 Carbon Dioxide 26.5 Anion Gap 10 BUN 11 Creatinine 0.7 Estim Creat Clear Calc 155.6 eGFR > 60 BUN/Creatinine Ratio 16 Glucose 88 Calculated Osmolality 283 Calcium 9.2 Corrected Calcium 9.2 Phosphorus 4.8 Magnesium 2.1 Total Bilirubin 0.4 AST 24 ALT 37 Alkaline Phosphatase 82 Total Protein 7.0 Albumin 4.4 Globulin 2.6 Albumin/Globulin Ratio 1.7 Quality Measures Quality Measures VTE prophylaxis Assessment & Plan Assessment Current Active Medications: Generic Name Dose Route Start Last Admin Trade Name Freq PRN Reason Stop Dose Admin Acetaminophen 650 mg 03/03/25 22:32 03/03/25 23:00 Acetaminophen Flores 325 Mg/10 Ml Udc PO 04/02/25 22:31 650 mg Q6HR PRN Administration Pain 1-3 Or Fever > 100.3 Fentanyl Citrate 25 mcg 03/04/25 13:34 03/04/25 14:35 Fentanyl Cit Inj 50 Mcg/Ml Amp 2ml IV 03/04/25 15:34 25 mcg Q5M PRN Administration PAIN SCALE 1-3 (mild Hydromorphone HCl 0.4 mg 03/04/25 13:34 03/04/25 14:41 Hydromorphone Inj 2 Mg/Ml Vial IV 03/04/25 15:35 0.4 mg Q5M PRN Administration PAIN SCALE 7-10 (Severe Acetaminophen 1,000 mg in 100 mls @ 250 mls/hr 03/04/25 13:35 03/04/25 14:44 Ofirmev Inj IV 03/05/25 07:58 250 mls/hr Q6H MORALES Administration Ketorolac Tromethamine 15 mg 03/02/25 00:31 03/04/25 00:09 Ketorolac Inj 30 Mg/Ml Vial IVP 03/07/25 00:30 15 mg Q6H PRN Administration PAIN SCALE 4-6 (Moderate Morphine Sulfate 3 mg 03/04/25 13:34 Morphine Sulf Inj 10 Mg/Ml Vial IV 03/04/25 15:35 Q5M PRN PAIN SCALE 4-6 (Moderate Ondansetron HCl 4 mg 03/02/25 00:31 Ondansetron Inj 2 Mg/Ml Inj 2 Ml IV 04/01/25 00:44 Q8H PRN NAUSEA OR VOMITING Protocol Oxycodone/Acetaminophen 1 tab 03/04/25 08:36 Oxycodone/Apap 5/325 Tablet PO 03/09/25 08:35 Q6HR PRN PAIN SCALE 7-10 (Severe Plan 19-year-old female without significant past medical history presented to the ED with abdominal pain, hospitalist team consulted for management of sudden pressure-like cardiac pain relieved with morphine. #Chest pain prior to surgery Patient was scheduled for cholecystectomy, prior to surgery developed crushing like chest pain relieved with morphine. EKG showed right bundle branch block. Troponins negative. -Cardiology consulted, follow-up recommendations -Cardiac monitoring #Cholelithiasis Present with right upper quadrant abdominal pain. Cholelithiasis determined by imaging. Cholecystectomy performed without complications. -Management as per general surgery team DVT prophylaxis: Mobility GI prophylaxis: None Diet: Full liquid diet Lines: Peripheral IV Code status: Full code Plan of care discussed with senior resident Dr. Damon PGY?[address] Hodges. Harjinder Albarran MD PGY?1
--- NOTE | 2025-03-04 15:30 | SUR.PHASEI ---
1530: Pt. AAOx4, vitals stable, breathing unlabored, complaint of pain, pain meds administered, educated pt. about gas pains, pt. verbalized understanding. x4 dermabon sites to ABD CDI, no active bleed noted, pt. tolerated sips of soda well, gave report to Ely DE SOUZA prior to transfer to room 366. Family made aware of transfer to room.
--- NOTE | 2025-03-04 16:18 | PC.SS ---
SS rounding note: Consulting Cardiac, laparoscopic cholecystectomy today. Possible discharge if cleared by Dr. Macias.
--- NOTE | 2025-03-04 20:35 | PC.NURSE ---
At the beginning of the shift nurse was notified regarding patient having pain and nausea. Held discharge for 2 hours and followed up with patient. Patient mentioned to nurse if she can stay over the night. Hospitalist was contacted and discharge was held until tomorrow. Pain medication were given to the patient. Patient is also able to ambulate to and from the bed to restroom. Family is at bedside.
[2025-03-05] VITALS: BP 127/97; PULSE 93; RESP 17; TEMP 37.2; O2SAT 95
[2025-03-05 04:00] VITALS: BP 122/79; PULSE 92; RESP 16; TEMP 36.4; O2SAT 95
[2025-03-05] MEDS: KETOROLAC INJ 30 MG/ML VIAL 15 MG IVP (05:22)
[2025-03-05 05:51] LABS: Basophils % (Auto) 0 % (0-2.5); Eosinophils % (Auto) 0 % (0-10); Hematocrit 32.6 % (36.0-46.0); Hemoglobin 9.7 g/dL (12.0-16.0); Immature Granulocytes % (Auto) 0 % (0-0); Immature Granulocytes Auto 0.07 Thou/mm3 (0.00-0.00); Lymphocytes # (Auto) 2.4 Thou/mm3 (1.0-5.0); Lymphocytes % (Auto) 15 % (10-50); Mean Corpuscular HGB Conc 29.8 g/dl (31.0-37.0); Mean Corpuscular Hemoglobin 19.2 pg (25.0-35.0); Mean Corpuscular Volume 64 fL (80-100); Monocytes % (Auto) 6 % (0-12); Neutrophils # (Auto) 12.1 Thou/mm3 (1.8-7.7); Neutrophils % (Auto) 78 % (37-80); Nucleated Red Blood Cell % 0 /100 WBC (0); Platelet Count 382 Thou/mm3 (140-440); Red Blood Count 5.06 Miln/mm3 (4.00-5.20); White Blood Count 15.6 Thou/mm3 (4.5-11.0)
[2025-03-05 06:48] LABS: Alanine Aminotransferase 66 U/L (10-49); Albumin, Serum 4.5 gm/dL (3.5-5.0); Albumin/Globulin Ratio 1.7 (1.2-2.2); Alkaline Phosphatase 87 U/L (46-116); Anion Gap 12 (7-16); Aspartate Amino Transferase 46 U/L (0-34); BUN/Creatinine Ratio 12 Ratio (12-20); Bilirubin,Total 0.5 mg/dL (0.3-1.2); Blood Urea Nitrogen 7 mg/dL (9-23); Calcium 9.2 mg/dL (8.3-10.6); Calcium (Corrected) 9.2 mg/dL (8.5-10.1); Carbon Dioxide 23.2 mMol/L (20.0-31.0); Chloride 107 mMol/L (98-107); Creatinine (Component) 0.6 mg/dL (0.6-1.3); Estimated Creatinine Clearance 181.6 mL/min (>60); Globulin 2.6 gm/dL (2.3-3.5); Glucose 99 mg/dL (74-106); Osmolality,Calculated 281 (275-295); Phosphorous 4.2 mg/dL (2.4-5.1); Sodium 142 mMol/L (136-145); Total Protein 7.1 gm/dL (5.7-8.2); eGFR > 60 See Note
[2025-03-05 08:00] VITALS: BP 139/87; PULSE 99; RESP 17; TEMP 36.7; O2SAT 98
--- NOTE | 2025-03-05 15:05 | ESPR_ITS ---
<Statement entered by Fiona Hodges MD - 03/13/25 07:27> I reviewed above note and agree with findings and plans. I have also personally examined the patient with medicine team and went over assessment and plan with medical team including software intern and resident physician. <Statement entered by Esther Mercer MD - 03/05/25 15:11> Acute overnight event, patient had cholecystectomy, without complication, echo was done was within normal limits. Patient denied any chest pain, shortness of breath, or any other associated symptoms. Hospitalist team will sign off the case. I personally saw and examined the patient and discussed the assessment and plan with the entire medicine team, including my attending Esther Matthews M.D. PGY-2 Disclaimer: Despite multiple revisions, due to the dictation software being used, the document bellow may not be free of grammatical errors including phonetic/typographic errors. However, this does not deter from our commitment to providing health care in the patient's best interest in mind. Documentation for date of: 03/05/25 Subjective Subjective Interval history: No overnight events. Patient seen and examined ambulating, comfortable. Patient endorsed mild diffuse abdominal pain following cholecystectomy, improving. Patient denies fever, chills, chest pain, shortness of breath, nausea, vomiting. Tolerated oral diet well. Will sign off on this patient. Further management as per surgery team. Exam Vital Signs Temp Pulse Resp BP Pulse Ox O2 Del Method O2 Flow Rate 98.0 F 99 17 139/87 H 98 Room Air 2 03/05/25 08:00 03/05/25 08:00 03/05/25 08:00 03/05/25 08:00 03/05/25 08:00 03/05/25 08:00 03/04/25 14:55 Narrative Exam PE: Gen: Well-developed and well-nourished. HEENT: NCAT, PERRLA, EOMI, MMM, anicteric conjunctivae. CVS: normal S1 and S2. RRR. No M/R/G. Resp: CTA B/L. No rhonchi, rales, crackles or wheezing. Abd: soft, non-distended. Mild diffuse abdominal tenderness. MSK: Good ROM in BUE & BLE. No edema or rash. Neuro: CN II-XII grossly intact. Strength 5/5 in BUE & BLE. Alert and oriented x3. Psych: appropriate mood and affect. Objective Labs 03/05/25 05:05 03/05/25 05:05 Labs: Laboratory Results - last 24 hr 03/05/25 05:05 WBC 15.6 H RBC 5.06 Hgb 9.7 L Hct 32.6 L MCV 64 L MCH 19.2 L MCHC 29.8 L RDW Std Deviation 40.0 Plt Count 382 Neut % (Auto) 78 Lymph % (Auto) 15 [place] % (Auto) 6 Eos % (Auto) 0 Baso % (Auto) 0 Neut # (Auto) 12.1 H Lymph # (Auto) 2.4 [place] # (Auto) 1.0 H Eos # (Auto) 0.0 Baso # (Auto) 0.0 Immature Gran # (Auto) 0.07 H Absolute Nucleated RBC 0.00 Immature Gran % 0 Nucleated RBC % 0 Sodium 142 Potassium 4.0 Chloride 107 Carbon Dioxide 23.2 Anion Gap 12 BUN 7 L Creatinine 0.6 Estim Creat Clear Calc 181.6 eGFR > 60 BUN/Creatinine Ratio 12 Glucose 99 Calculated Osmolality 281 Calcium 9.2 Corrected Calcium 9.2 Phosphorus 4.2 Magnesium 2.0 Total Bilirubin 0.5 AST 46 H ALT 66 H Alkaline Phosphatase 87 Total Protein 7.1 Albumin 4.5 Globulin 2.6 Albumin/Globulin Ratio 1.7 Quality Measures Quality Measures VTE prophylaxis Assessment & Plan Assessment Current Active Medications: Generic Name Dose Route Start Last Admin Trade Name Freq PRN Reason Stop Dose Admin Acetaminophen 650 mg 03/03/25 22:32 03/03/25 23:00 Acetaminophen Flores 325 Mg/10 Ml Udc PO 04/02/25 22:31 650 mg Q6HR PRN Administration Pain 1-3 Or Fever > 100.3 Fentanyl Citrate 25 mcg 03/04/25 13:34 03/04/25 14:35 Fentanyl Cit Inj 50 Mcg/Ml Amp 2ml IV 03/04/25 15:34 25 mcg Q5M PRN Administration PAIN SCALE 1-3 (mild Hydromorphone HCl 0.4 mg 03/04/25 13:34 03/04/25 14:41 Hydromorphone Inj 2 Mg/Ml Vial IV 03/04/25 15:35 0.4 mg Q5M PRN Administration PAIN SCALE 7-10 (Severe Acetaminophen 1,000 mg in 100 mls @ 250 mls/hr 03/04/25 13:35 03/04/25 14:44 Ofirmev Inj IV 03/05/25 07:58 250 mls/hr Q6H MORALES Administration Ketorolac Tromethamine 15 mg 03/02/25 00:31 03/04/25 00:09 Ketorolac Inj 30 Mg/Ml Vial IVP 03/07/25 00:30 15 mg Q6H PRN Administration PAIN SCALE 4-6 (Moderate Morphine Sulfate 3 mg 03/04/25 13:34 Morphine Sulf Inj 10 Mg/Ml Vial IV 03/04/25 15:35 Q5M PRN PAIN SCALE 4-6 (Moderate Ondansetron HCl 4 mg 03/02/25 00:31 Ondansetron Inj 2 Mg/Ml Inj 2 Ml IV 04/01/25 00:44 Q8H PRN NAUSEA OR VOMITING Protocol Oxycodone/Acetaminophen 1 tab 03/04/25 08:36 Oxycodone/Apap 5/325 Tablet PO 03/09/25 08:35 Q6HR PRN PAIN SCALE 7-10 (Severe Plan 19-year-old female without significant past medical history presented to the ED with abdominal pain, hospitalist team consulted for management of sudden pressure-like cardiac pain relieved with morphine. #Chest pain prior to surgery Patient was scheduled for cholecystectomy, prior to surgery developed crushing like chest pain relieved with morphine. EKG showed right bundle branch block. Troponins negative. -Cardiology consulted, follow-up recommendations -Cardiac monitoring -Will sign off on this patient #Cholelithiasis status post cholecystectomy Present with right upper quadrant abdominal pain. Cholelithiasis determined by imaging. Cholecystectomy performed without complications. -Management as per general surgery team DVT prophylaxis: Mobility GI prophylaxis: None Diet: Full liquid diet Lines: Peripheral IV Code status: Full code Plan of care discussed with senior resident Dr. Mercer PGY?[address] Hodges. Harjinder Albarran MD PGY?1
--- NOTE | 2025-03-05 15:30 | ESPR_ITS ---
Documentation for date of: 03/05/25 Subjective Subjective Interval history: No acute overnight events noted. Seen and examined at bedside following cholecystectomy. Patient tolerated the procedure well without any kind of cardiac applications. Only endorses mild abdominal pain managed with PO pain medications. She otherwise has no complaints, including shortness of breath, chest discomfort, palpitations, or lightheadedness. Ambulating well and plans for discharge per primary team. Exam Vital Signs Temp Pulse Resp BP Pulse Ox O2 Del Method O2 Flow Rate 98.0 F 99 17 139/87 H 98 Room Air 2 03/05/25 08:00 03/05/25 08:00 03/05/25 08:00 03/05/25 08:00 03/05/25 08:00 03/05/25 08:00 03/04/25 14:55 Narrative Exam General: AOx3, no acute distress, able to speak full sentences, breathing comfortably on room air HEENT: NC/AT, mucous membranes moist, bilateral sclera anicteric Cardiovascular: tachycardic, regular rhythm, S1/S2 present, no murmurs appreciated Pulmonary: clear to auscultation bilaterally, no rales/rhonchi/wheezes Abdominal: RUQ tenderness, non-distended, no rebound/guarding, normal bowel sounds present Musculoskeletal: sternum tender to palpation, normal ROM, no peripheral edema Skin: warm and dry, intact, no rashes Neuro: CN II-XII intact, no focal deficits Objective Labs 03/05/25 05:05 03/05/25 05:05 Labs: Laboratory Results - last 24 hr 03/05/25 05:05 WBC 15.6 H RBC 5.06 Hgb 9.7 L Hct 32.6 L MCV 64 L MCH 19.2 L MCHC 29.8 L RDW Std Deviation 40.0 Plt Count 382 Neut % (Auto) 78 Lymph % (Auto) 15 [place] % (Auto) 6 Eos % (Auto) 0 Baso % (Auto) 0 Neut # (Auto) 12.1 H Lymph # (Auto) 2.4 [place] # (Auto) 1.0 H Eos # (Auto) 0.0 Baso # (Auto) 0.0 Immature Gran # (Auto) 0.07 H Absolute Nucleated RBC 0.00 Immature Gran % 0 Nucleated RBC % 0 Sodium 142 Potassium 4.0 Chloride 107 Carbon Dioxide 23.2 Anion Gap 12 BUN 7 L Creatinine 0.6 Estim Creat Clear Calc 181.6 eGFR > 60 BUN/Creatinine Ratio 12 Glucose 99 Calculated Osmolality 281 Calcium 9.2 Corrected Calcium 9.2 Phosphorus 4.2 Magnesium 2.0 Total Bilirubin 0.5 AST 46 H ALT 66 H Alkaline Phosphatase 87 Total Protein 7.1 Albumin 4.5 Globulin 2.6 Albumin/Globulin Ratio 1.7 Quality Measures Quality Measures VTE prophylaxis Assessment & Plan Assessment Current Active Medications: Generic Name Dose Route Start Last Admin Trade Name Freq PRN Reason Stop Dose Admin Acetaminophen 650 mg 03/03/25 22:32 03/03/25 23:00 Acetaminophen Flores 325 Mg/10 Ml Udc PO 04/02/25 22:31 650 mg Q6HR PRN Administration Pain 1-3 Or Fever > 100.3 Ketorolac Tromethamine 15 mg 03/02/25 00:31 03/04/25 00:09 Ketorolac Inj 30 Mg/Ml Vial IVP 03/07/25 00:30 15 mg Q6H PRN Administration PAIN SCALE 4-6 (Moderate Ondansetron HCl 4 mg 03/02/25 00:31 Ondansetron Inj 2 Mg/Ml Inj 2 Ml IV 04/01/25 00:44 Q8H PRN NAUSEA OR VOMITING Protocol Oxycodone/Acetaminophen 1 tab 03/04/25 08:36 Oxycodone/Apap 5/325 Tablet PO 03/09/25 08:35 Q6HR PRN PAIN SCALE 7-10 (Severe Plan Colt Allen is a 19-year-old female with a past medical history of cholelithiasis who presented to the ED on 03/02 with abdominal pain that she has been experiencing for the last 6 months. She states that she follows-up at [facility] and presumed to have an abdominal ultrasound that showed gallstones. Per chart review, abdominal ultrasound dating back to 08/2024 shows cholilithiasis. States pain is associated with eating, can get up to 10/10 in severity and has started to become more severe over time. Associated nausea, no emesis, but some loose bowel movements. She recently visited the ED for right upper quadrant pain, nausea, vomiting, and decreased PO intake but then discharged home. Patient re-presented to ED and was admitted for acute cholecystitis. After admission, patient had a rapid response for chest discomfort. Per patient and boyfriend at bedside, at 1312 patient received 4 mg IV morphine and within 10-15 minutes she began to experience discomfort in her legs and that her heart was going to stop . She also described substernal chest pressure that lasted 20-30 minutes but eventually subsided without intervention. Vitals showed BP 140/90, HR 115, and RR of 22, saturating 98% on RA. CXR was unremarkable, troponins negative. However, EKG read of incomplete right bundle branch block and cardiology was consulted. #Chest discomfort #Incomplete right bundle branch block Has experienced chest discomfort since 08/2024 that are not related to any specific situations or any other associated symptoms. During hospitalization, experienced chest discomfort after receiving 4 mg IV morphine that subsided without intervention. CXR unremarkable, troponins negative, but EKG showed incomplete right bundle branch block. She denies any personal history of cardiac-related problems or a family history of cardiac problems. Also denies any recent upper respiratory symptoms or recent colds and has received all of her childhood vaccines as far as she is aware. Echo 03/03: Normal LV size and function with and estimated EF of 60-65%. Normal RV size and function with normal RVSP. Mild TR. ? Status-post cholecystectomy, Patient tolerated the procedure well without any kind of cardiac applications. Only endorses mild abdominal pain managed with PO pain medications. cardiology signing off #Cholelithiasis #RUQ pain #Morbid obesity #Chronic microcytic anemia ? Given significant microcytosis, recommend further evaluation as seen fit per primary team and/or consultants ? Rest of conditions to continue current management per primary team ----- Plan discussed with attending physician Dr. Jeramy Lawrence MD PGY-1 Internal Medicine Attending Provider Attestation/Addendum I have personally seen and examined the patient separately on the above date of service and discussed the plan of care with the resident. I reviewed the resident Dr. Henry Lawrence consultation progress note and agree with the resident findings and plan in the note above and have also edited the documentation to reflect my findings and plan. Phillip Deshpande M.D. Interventional Cardiology
--- NOTE | 2025-03-05 16:09 | PC.SS ---
rounding note: Patient to d/c home today. No d/c needs.
== END 2025-03-05 10:05 | disposition home or self-care (01) ==
LOC: SERX 03-02 00:24 → S3NX 03-02 10:15 → SERHOLD 03-03 05:46 → S3NX 03-03 05:47
PROVIDERS: Student in an Organized Health Care Education/Training Program; Admitting Provider Surgery; Emergency Provider Emergency Medicine; PCP Nurse Practitioner Family; Visit Provider Internal Medicine
PROC: 0FT44ZZ Resection of Gallbladder, Percutaneous Endoscopic Approach (ICD-10-PCS; CPT 47562; principal; 2025-03-04 13:00)
DX: K80.20 Calculus of gallbladder without cholecystitis without obstruction (principal); I45.19 Other right bundle-branch block; D50.9 Iron deficiency anemia, unspecified; E66.01 Morbid (severe) obesity due to excess calories; I45.10 Unspecified right bundle-branch block; K76.0 Fatty (change of) liver, not elsewhere classified; Z01.810 Encounter for preprocedural cardiovascular examination; Z90.49 Acquired absence of other specified parts of digestive tract
CPT/HCPCS: 47562; 36415; 71045; 76705; 80053; 81001; 81025; 82150; 82248; 83540; 83550; 83690; 83735; 84100; 84484; 85025; 93005; 93306; 96361; 96365; 96366; 96372; 96375; 99285; A4217; A4649; G0378; J0131; J0694; J1100; J1171; J1885; J2250; J2270; J2405; J2543; J2704; J3010; J3475; J3490; J7030; Q0162; A9270

== ENCOUNTER 2025-03-17 11:32 | Outpatient (AMB) | payer MEDICAID, SELFPAY ==
[2025-03-17 11:42] VITALS: BP 128/86; PULSE 116; RESP 19; TEMP 36.1; O2SAT 95; BMI 36.8
--- NOTE | 2025-03-17 11:42 | PD.GSCLVISIT ---
Vital Signs - [facility] 03/17/25 11:42 Height 1.65 m Height Method Measured Weight 100.329 kg Weight Measurement Method Standing Scale BMI 36.8 BP 128/86 H Blood Pressure Source Automatic Cuff Blood Pressure Location Right Upper Arm Position Sitting Respiration 19 Pulse 116 H Pulse Source Monitor Temp 96.9 F Temp Source Temporal Artery Scan Pulse Oximetry (%) 95 Oxygen Delivery Method Room Air Med/Allergies Allergies & Medications Allergies No Known Allergies Allergy (Verified 03/17/25 11:43) Medication Reconciliation oxycodone-acetaminophen 5 mg-325 mg tablet (Percocet) 1 tab PO Q6H PRN pain #10 tabs 03/04/25 [Rx Confirmed 03/17/25] MA Intake Visit Data Collection New Patient or Established: Established Patient (seen at [facility] within 3 years) Reason for Visit:: F/U LAP SETH Pain Present Currently: No Pain scale:: 0 Pain Scale Used: Smyth-Olmedo/Numerical Evaporator Operator Molasses Required: No PCP or OBGYN visit in last 3 months: Yes Date of Last PCP or OBGYN visit: 03/10/25 Hx Now: No Do You Feel Safe at Home: Yes Authorities Contacted: N/A Smoking Status Smoking Status: Never smoker Immunization / Flu Flu Vaccine in the Last 12 Months: No Flu Vaccine Exclusion Criteria: No Exclusion Criteria Past Medical History Past Medical History NEUROLOGIC: Negative Neurological Disorders or Seizures CARDIAC: Negative Cardiac Disorders or Congestive Heart Failure RESPIRATORY: Negative Chronic Obstructive Pulmonary Disease (COPD) GASTROINTESTINAL: Positive Gastrointestinal Disorders and Gall Bladder Disease (gallstones) GENITOURINARY: Negative Genitourinary Disorders or Renal Disease REPRODUCTIVE: Negative Endometriosis, Pelvic Inflammatory Disease, Previous Pregnancies or Uterine Prolapse MUSCULOSKELETAL: Negative Musculoskeletal Disorders ENDOCRINE: Negative Endocrine Disorders, Diabetes Mellitus Type 1 or Diabetes Mellitus Type 2 HEMATOLOGIC: Negative Blood Disorders OTHER HISTORY: Negative Autoimmune Disease, Blood Transfusions, Blood Transfusion Reaction, Anesthesia Reactions, MRSA, Clostridium Difficile or Cancer Family History FAMILY HISTORY: Negative Family Cardiac Disorders Surgical History SURGICAL: Negative Cardiac Surgery, Endocrine Surgery, Ear Surgery, Abdominal Surgery, Nephrectomy, Joint Replacement, Neurologic Surgery or Mastectomy Social History SMOKING STATUS: Smoking status: Never smoker ALCOHOL: Alcohol Intake: Never HOUSING: Housing: House LIVES WITH: Lives With: Family Travel Risk Travel Hx Recent Travel: No HPI HPI Narrative 19F who presented with signs and symptoms of cholecystitis, underwent cardiac workup due to chest pain followed by laparoscopic cholecystectomy 03/04 here for planned follow up. Pt reports feeling well overall, she has no pain, no nausea, no fever, is eating well and having regular BMs without any diarrhea ROS Review of Systems Systems Reviewed: All systems reviewed, normal except as documented Objective/Exam General General Appearance: alert, cooperative and well groomed Resp Respiratory exam: Absent respiratory distress Abdominal Abdominal exam: Present soft and incision (c/d/i, no erythema, no fluctuance or tenderness); Absent distention or tenderness Assessment & Plan Diagnosis / Problem List (1) Cholecystitis: Status: Acute Assessment & Plan: 19F s/p lap seth 03/04/25, recovering well Plan: Avoid lifting objects >10lbs for 6 weeks postop F/u as needed Office Procedures GNS Level of Care Nursing/Assessment Patient Status: Established Patient Nursing Assessment/Reassesment: Medication Reconciliation, Update PMH in EMR and Vital Signs Coordination of Care: Complex Care and Chronic Disease 1-5, Education Complex Pt/Fam, Consent,records obtained, informed consent, Results/Orders obtained and Staff clarify orders Established Patient Charge Established Patient Point Assignment: 95 Established Patient Point Charge: EP Level 3 (80-115) Patient Portal Questionaires Social History Living Situation History Housing: House Tobacco History Smoking Status: Never smoker Alcohol History Alcohol Intake: Never Domestic Abuse History Do You Feel Safe at Home: Yes Review of Systems Report any current symptoms Only answer those that you have currently: Past Medical History Past Medical History Have you ever been diagnosed with any of the following: Neurological Problems Seizures: No Cardiology Problems Congestive Heart Failure: No Respiratory Problems Chronic Obstructive Pulmonary Disease (COPD): No Stomache/Intestinal Problems Gall Bladder Disease: Yes (gallstones) Genital/Urinary Problems Renal Disease: No Reproductive Problems Endometriosis: No Pelvic Inflammatory Disease: No Previous Pregnancies: No Uterine Prolapse: No Endocrine Problems Diabetes Mellitus Type 1: No Diabetes Mellitus Type 2: No Other Problems Autoimmune Disease: No Blood Transfusions: No Blood Transfusion Reaction: No Anesthesia Reactions: No MRSA: No Clostridium Difficile: No Cancer: No
== END 2025-03-17 12:05 | disposition home or self-care (01) ==
LOC: HODSRG 11:32
PROVIDERS: PCP Nurse Practitioner Family; Referring Provider Nurse Practitioner Family; Supervising Provider Surgery; Visit Provider Surgery
DX: K81.9 Cholecystitis, unspecified (principal); Z90.49 Acquired absence of other specified parts of digestive tract
CPT/HCPCS: 99213; G0463

== ENCOUNTER 2025-03-18 01:41 | Emergency (ER) | payer MEDICAID, SELFPAY ==
[2025-03-18 01:41] VITALS: BMI 36.6
[2025-03-18 01:47] VITALS: BP 138/97; PULSE 106; RESP 18; TEMP 36.8; O2SAT 99
--- NOTE | 2025-03-18 01:50 | EKG_ITS ---
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
--- NOTE | 2025-03-18 01:51 | XR_ITS ---
Examination: PA lateral chest 2 views Technique: Upright PA lateral chest 2 views Exam date and time: March 23, 2025 0215 hrs. Indications: Chest pain several days with arm numbness Findings: Normal heart size. Lungs are clear. Osseous structures are intact Impression: No active disease
--- NOTE | 2025-03-18 01:51 | PD.EDRME ---
Rapid Medical Screening Exam RME Arrival date/time: 03/18/25 01:41 19 yo f present to ED for c/o of chest pain for a few days, + arm numbness I have greeted and performed a focused initial assessment of this patient. A comprehensive ED assessment and evaluation of the patient, analysis of all test results, and completion of the medical decision making process will be conducted by additional ED providers. Chief Complaint: Abdominal Pain Time Seen by Provider: 03/18/25 01:49 Vital signs: Vital Signs Temperature 98.3 F 03/18/25 01:47 Pulse Rate 106 H 03/18/25 01:47 Respiratory Rate 18 03/18/25 01:47 Blood Pressure 138/97 H 03/18/25 01:47 Pulse Oximetry (%) 99 03/18/25 01:47 Oxygen Delivery Method Room Air 03/18/25 01:47
[2025-03-18 02:35] LABS: Basophils # (Auto) 0.1 Thou/mm3 (0.0-0.2); Basophils % (Auto) 1 % (0-2.5); Eosinophils # (Auto) 0.5 Thou/mm3 (0.0-0.5); Eosinophils % (Auto) 4 % (0-10); Hematocrit 35.4 % (36.0-46.0); Hemoglobin 10.8 g/dL (12.0-16.0); Immature Granulocytes % (Auto) 0 % (0-0); Immature Granulocytes Auto 0.02 Thou/mm3 (0.00-0.00); Lymphocytes # (Auto) 3.3 Thou/mm3 (1.0-5.0); Lymphocytes % (Auto) 29 % (10-50); Mean Corpuscular HGB Conc 30.5 g/dl (31.0-37.0); Mean Corpuscular Hemoglobin 19.7 pg (25.0-35.0); Mean Corpuscular Volume 65 fL (80-100); Monocytes % (Auto) 8 % (0-12); Neutrophils # (Auto) 6.8 Thou/mm3 (1.8-7.7); Neutrophils % (Auto) 59 % (37-80); Nucleated Red Blood Cell % 0 /100 WBC (0); Platelet Count 466 Thou/mm3 (140-440); RDW Standard Deviation 41.3 fL (36.4-46.3); Red Blood Count 5.49 Miln/mm3 (4.00-5.20); White Blood Count 11.7 Thou/mm3 (4.5-11.0)
[2025-03-18 02:52] LABS: Alanine Aminotransferase 34 U/L (10-49); Albumin, Serum 5.1 gm/dL (3.5-5.0); Albumin/Globulin Ratio 1.8 (1.2-2.2); Alkaline Phosphatase 106 U/L (46-116); Anion Gap 8 (7-16); Aspartate Amino Transferase 20 U/L (0-34); BUN/Creatinine Ratio 20 Ratio (12-20); Bilirubin,Total 0.3 mg/dL (0.3-1.2); Blood Urea Nitrogen 12 mg/dL (9-23); Calcium 9.7 mg/dL (8.3-10.6); Calcium (Corrected) 9.7 mg/dL (8.5-10.1); Carbon Dioxide 24.8 mMol/L (20.0-31.0); Chloride 107 mMol/L (98-107); Creatinine (Component) 0.6 mg/dL (0.6-1.3); Estimated Creatinine Clearance 176.5 mL/min (>60); Globulin 2.8 gm/dL (2.3-3.5); Glucose 129 mg/dL (74-106); Lipase 41 U/L (12-53); Osmolality,Calculated 281 (275-295); Potassium 4.3 mMol/L (3.4-5.1); Sodium 140 mMol/L (136-145); Total Protein 7.9 gm/dL (5.7-8.2); eGFR > 60 See Note
[2025-03-18 03:00] LABS: HCG,Qualitative Serum Negative
[2025-03-18 03:55] LABS: D-Dimer 339 ng/mL (<600)
[2025-03-18 06:01] LABS: Collection Type, Urine Voided
[2025-03-18 06:28] LABS: Bilirubin,Urine Negative (Negative); Blood,Urine Negative (Negative); Clarity,Urine Clear (Clear/Hazy); Color,Urine Lt-Yellow (Lt Yel-Yel); Glucose, Urine Negative (Negative); Ketones,Urine Negative (Negative); Leukocyte Esterase,Urine Positive (Negative); Nitrite,Urine Negative (Negative); Protein,Urine Trace (Neg - Trace); RBC,Urine 2 /hpf (0-3); Specific Gravity,Urine 1.028 (1.001-1.035); Squamous Epithelial Cell,Urine 3 /hpf (0-5); Urobilinogen,Urine Negative mg/dL (0.0-1.0); WBC,Urine 12 /hpf (0-5)
--- NOTE | 2025-03-18 07:45 | PD.EDABDPN ---
ED Abdominal Pain RME/HPI General Chief Complaint: Abdominal Pain Stated complaint: L FLANK PAIN Time seen by provider: 03/18/25 01:49 Arrival date/time: 03/18/25 01:41 19-year-old female with a history of a cholecystectomy 2 weeks ago presents to the emergency room with a chief complaint of left upper quadrant abdominal pain and some left-sided chest pain x 1 week Limitations: no limitations RME / HPI RME / HPI narrative: 03/18/25 01:41 19 yo f present to ED for c/o of chest pain for a few days, + arm numbness I have greeted and performed a focused initial assessment of this patient. A comprehensive ED assessment and evaluation of the patient, analysis of all test results, and completion of the medical decision making process will be conducted by additional ED providers. Related Data Previous Rx's ?Medication ?Instructions ?Recorded oxycodone-acetaminophen 5 mg-325 1 tab PO Q6H PRN pain #10 tabs 03/04/25 mg tablet (Percocet) Allergies Allergy/AdvReac Type Severity Reaction Status Date / Time No Known Allergies Allergy Verified 03/18/25 01:44 Review of Systems Review of Systems Systems Reviewed: All systems reviewed, normal except as documented Constitutional Constitutional: Reports system reviewed and no additional complaints, except as documented, Denies fatigue, Denies fever(s), Denies headache(s) and Denies weakness Eyes Eyes: Reports system reviewed and no additional complaints, except as documented, Denies blurry vision and Denies change in vision ENT Ears, Nose, Mouth, and Throat: Reports system reviewed and no additional complaints, except as documented, Denies otalgia, Denies headache(s), Denies nasal congestion, Denies throat swelling and Denies vertigo Cardiovascular Cardiovascular: Reports system reviewed and no additional complaints, except as documented, Reports chest pain, Denies dyspnea and Denies dyspnea on exertion Respiratory Respiratory: Reports system reviewed and no additional complaints, except as documented, Denies chest congestion, Denies cough, Denies dyspnea, Denies dyspnea on exertion and Denies wheezing Gastrointestinal Gastrointestinal: Reports system reviewed and no additional complaints, except as documented, Reports abdominal pain, Reports cramping, Denies nausea and Denies vomiting Genitourinary Genitourinary: Reports system reviewed and no additional complaints, except as documented Musculoskeletal Musculoskeletal: Reports system reviewed and no additional complaints, except as documented and Denies back pain Integumentary/Breasts Skin/Breast: Reports system reviewed and no additional complaints, except as documented and Denies wounds Neurologic Neurologic: Reports system reviewed and no additional complaints, except as documented, Denies confusion, Denies headache(s), Denies lack of coordination, Denies vertigo and Denies weakness Psychiatric Psychiatric: Reports system reviewed and no additional complaints, except as documented, Denies anxiety, Denies confusion, Denies depression, Denies paranoia, Denies suicidal ideation and Denies tactile hallucinations Endocrine Endocrine: Reports system reviewed and no additional complaints, except as documented and Denies fatigue Hematologic/Lymphatic Hematologic/Lymphatic: Reports system reviewed and no additional complaints, except as documented and Denies lymphadenopathy Allergic/Immunologic Allergic/Immunologic: Reports system reviewed and no additional complaints, except as documented, Denies throat swelling, Denies urticaria and Denies wheezing Past Medical History Past Medical History NEUROLOGIC: Negative Neurological Disorders or Seizures CARDIAC: Negative Cardiac Disorders or Congestive Heart Failure RESPIRATORY: Negative Chronic Obstructive Pulmonary Disease (COPD) GASTROINTESTINAL: Positive Gastrointestinal Disorders and Gall Bladder Disease (gallstones) GENITOURINARY: Negative Genitourinary Disorders or Renal Disease REPRODUCTIVE: Negative Endometriosis, Pelvic Inflammatory Disease, Previous Pregnancies or Uterine Prolapse MUSCULOSKELETAL: Negative Musculoskeletal Disorders ENDOCRINE: Negative Endocrine Disorders, Diabetes Mellitus Type 1 or Diabetes Mellitus Type 2 HEMATOLOGIC: Negative Blood Disorders OTHER HISTORY: Negative Autoimmune Disease, Blood Transfusions, Blood Transfusion Reaction, Anesthesia Reactions, MRSA, Clostridium Difficile or Cancer Family History FAMILY HISTORY: Negative Family Cardiac Disorders Surgical History SURGICAL: Negative Cardiac Surgery, Endocrine Surgery, Ear Surgery, Abdominal Surgery, Nephrectomy, Joint Replacement, Neurologic Surgery or Mastectomy Social History SMOKING STATUS: Never smoker ED Exam General Limitations: Present no limitations General appearance: Present alert and in no apparent distress Head Head exam: Present atraumatic Eye Eye exam: Present normal appearance, PERRL and EOMI ENT ENT exam: Present normal exam, normal oropharynx and mucous membranes moist Neck Neck exam: Present normal inspection, full ROM and trachea midline Chest Chest inspection: Present normal inspection and symmetric chest wall rise Respiratory Respiratory exam: Present normal lung sounds bilaterally Cardiovascular Cardiovascular exam: Present regular rate, normal rhythm and normal heart sounds; Absent tachycardia Abdominal Exam Abdominal exam: Present soft, tenderness and normal bowel sounds; Absent distention, guarding, rebound, rigidity or Fontaine's sign Abdominal tenderness: Present LUQ and mild Extremities Exam Extremities exam: Present normal inspection and full ROM Back Exam Back exam: Present normal inspection and full ROM Neurological Exam Neurological exam: Present alert, oriented X3 and CN II-XII intact Psychiatric Psychiatric exam: Present normal affect and normal mood Skin Skin exam: Present warm, dry, intact and normal color Course Quality Measures none Orders Category Date Time Status EKG (ED ONLY) *Do not use* NOW Care 03/18/25 01:50 Completed EKG (ED Only) Stat Exams 03/18/25 01:50 Draft XR chest 2V Stat Exams 03/18/25 01:51 Completed CBC Stat Lab 03/18/25 02:20 Completed CMP [Comprehensive Metabolic Panel] Stat Lab 03/18/25 02:20 Completed D-Dimer Stat Lab 03/18/25 02:20 Completed HCG,Qualitative Serum Stat Lab 03/18/25 02:20 Completed Lipase Stat Lab 03/18/25 02:20 Completed UA [Urinalysis] Stat Lab 03/18/25 05:59 Completed Vital Signs Vital signs: Vital Signs Temperature 98.3 F 03/18/25 01:47 Pulse Rate 106 H 03/18/25 01:47 Respiratory Rate 18 03/18/25 01:47 Blood Pressure 138/97 H 03/18/25 01:47 Pulse Oximetry (%) 99 03/18/25 01:47 Oxygen Delivery Method Room Air 03/18/25 01:47 O2 saturation 99% within normal limits Abdominal Pain MDM MDM Narrative MDM Narrative:: 19-year-old female with a history of a cholecystectomy 2 weeks ago presents to the emergency room with a chief complaint of left upper quadrant abdominal pain and some left-sided chest pain x 1 week Patient is hemodynamically stable and in no apparent distress. Physical examination shows mild 4 out of 10 intermittent left upper quadrant abdominal pain during my reevaluation. CBC CMP and urinalysis were within normal limits. Troponin was negative. EKG shows sinus tachycardia. I spoke to the patient she states she would like to go home as she has been waiting out in the lobby for 6 hours. Patient states her pain has decreased. I spoke to the patient and gave her strict return precautions to return to the emergency room for any evidence of worsening signs or symptoms. Patient was discharged and educated to follow-up with primary care provider in the next 24 to 48 hours and return to the emergency room for any evidence of worsening signs or symptoms Patient data External records reviewed:: [facility] previous records Clinical information provided by:: patient Social determinants that could affect healthcare access:: none Patient has the following chronic illnesses:: No chronic illness How is presenting disease/condition affected by chronic disease/condition?: no chronic disease Evaluation data The following diagnostics were reviewed and interpreted by me:: lab results and radiology exam(s) Lab and/or radiology exams considered but not ordered:: Labs and radiology exams considered and ordered Interpretation Summary: N/A Medications / Prescriptions Medications or Prescriptions considered but not ordered:: No medication given Medication administrations:: No medication given Consultations Consultation(s) initiated? (list below): No Diagnosis Differential diagnosis abdominal pain: abdominal pain, acute appendicitis, gastroenteritis and other (Chest pain) Most likely diagnosis given after review of the tests above:: Gastroenteritis Admission Indicated Admission indicated?: not indicated Admission Request Was there a request for admission?: No Disposition Plan Disposition Plan: Discharge Discharge Attestation Discharge Attestation: The patient and all family members were given an opportunity to ask questions and understood the discharge instructions. Discharge instructions specifically effects, indications for sooner follow up or return to the emergency department, and the expected course of current diagnosis. Patient condition: Stable Discharge Plan Plan Patient Disposition: HOME (Self Care) Disposition Comment: Stable Prescriptions/Referrals Prescriptions/Med Rec: No Action oxycodone-acetaminophen [Percocet] 5-325 mg tablet 1 tab PO Q6H MDD 6 tabs PRN (Reason: pain) Qty: 10 0RF Rx Instructions: Take 1 tab every 4-6 hours as needed for severe pain Referrals: Nighat Meneses FNP-C [Primary Care Provider] - In 1 week Problem List Clinical Impression: Gastroenteritis Patient/Caregiver Discharge Instructions Education Materials: ED Gastroenteritis, Noninfectious Additional Instructions: Please follow-up with your primary care provider in the next 24 to 48 hours. Since you recently had a cholecystectomy would also be a good idea to contact your general surgeon and let them know about your left upper quadrant abdominal pain. Please try eating a normal bland diet for the next 2 weeks. For any evidence of worsening signs or symptoms please return to the emergency room immediately Print Language: Korean Stand Alone Forms: Alexandra Award Info., Work/School Release, Patient Portal Info Letter CONSTANZA/DILLON Supervising Physician CONSTANZA/DILLON Supervising Physician: Dr. Medley
== END 2025-03-18 08:00 | disposition home or self-care (01) ==
PROVIDERS: Physician Assistant; Emergency Provider Emergency Medicine; PCP Nurse Practitioner Family
DX: K52.9 Noninfective gastroenteritis and colitis, unspecified (principal); R00.0 Tachycardia, unspecified; R07.9 Chest pain, unspecified; R20.0 Anesthesia of skin
CPT/HCPCS: 36415; 71046; 80053; 81001; 83690; 84703; 85025; 85379; 93005; 99283